=== PATIENT | female | born 1950 | race Caucasian/White ===

== ENCOUNTER 2016-02-21 09:40 | Emergency (ER) | payer MEDICARE, MEDICAID ==
--- NOTE | 2016-02-21 09:56 | Emergency Department Record ---
History of Present Illness - General Chief Complaint: Chest Pain Stated Complaint: CHEST PAIN Time Seen by Provider: 02/21/16 09:48 Source: Patient, RN notes reviewed Mode of Arrival: EMS - History of Present Illness Initial Comments: patient presented to ED with chest pain which started in the shower this am and is intermittent. Patient is a resident of [facility] and she has psychological diagnoses. Patient has called numerous times for chest pain. PMH schizophrenia. Her chest pain is reproducible by palpation over both sides of anterior chest MD Complaint: Chest pain Onset/Timin -: Hour(s) Onset: Other Pain Location: Substernal Pain Radiation: None Consistency: Now resolved Improves With: Nothing Worsens With: Nothing Treatments Prior to Arrival: None - Related Data On Oral Contraceptives: No Home Medications Medication Instructions Recorded Confirmed Last Taken Clonazepam 0.5 mg PO BID 05/12/14 02/21/16 1 Day Ago Divalproex Sodium [Divalproex 250 mg PO QHS 05/12/14 02/21/16 1 Day Ago Sodium ER] Lisinopril [Zestril] 10 mg PO DAILY 05/12/14 02/21/16 1 Day Ago Risperidone [Risperdal M-Tab] 3 mg PO BID 05/12/14 02/21/16 1 Day Ago Haloperidol 10 mg PO BID 08/04/14 02/21/16 1 Day Ago Tiotropium [place] [Spiriva] 2 puff IH DAILY 08/06/14 02/21/16 1 Day Ago Metoprolol Tartrate [Lopressor] 25 mg PO Q12H 09/29/14 02/21/16 1 Day Ago Albuterol Sulfate [Proair Hfa] 1 - 2 puff IH .EVERY 4-6 HOURS PRN 07/21/1502/20 1 Day Ago Furosemide [Lasix] 20 mg PO DAILY PRN 07/21/15 02/21/16 1 Day Ago Loperamide HCl [Anti-Diarrhea] 2 mg PO TID PRN 07/21/15 02/21/16 1 Day Ago Ondansetron HCl [Zofran] 4 mg PO TID PRN 07/21/15 02/21/16 1 Day Ago Potassium Chloride [Klor-Con] 20 meq PO DAILY PRN 07/21/15 02/21/16 1 Day Ago Atorvastatin Calcium 40 mg PO DAILY 01/29/16 02/21/16 1 Day Ago Calcium Carbonate [Calcium Antacid] 200 mg PO ASDIR 01/29/16 02/21/16 Unknown Divalproex Sodium 500 mg PO BID 01/29/16 02/21/16 1 Day Ago Glyburide 7.5 mg PO DAILY 01/29/16 02/21/16 1 Day Ago Ibuprofen [Motrin 600Mg] 600 mg PO Q8H PRN 01/29/16 02/21/16 Unknown Quetiapine Fumarate [Seroquel] 100 mg PO QHS 01/29/16 02/21/16 1 Day Ago Quetiapine Fumarate [Seroquel] 400 mg PO QHS 01/29/16 02/21/16 1 Day Ago Sodium Chloride [Saline Nasal Mist] 126 ml NS ASDIR PRN 01/29/16 02/21/16 Unknown Vortioxetine Hydrobromide 10 mg PO DAILY 01/29/16 02/21/16 1 Day Ago [Brintellix] Previous Rx's Medication Instructions Recorded Hydrochlorothiazide [Hctz] 25 mg PO DAILY #30 capsule 08/22/14 Allergies Allergy/AdvReac Type Severity Reaction Status Date / Time acetaminophen [From Tylenol] Allergy Intermediate NAUSEA Verified 01/29/16 12:02 aspirin Allergy Intermediate NAUSEA Verified 01/29/16 12:02 codeine Allergy Intermediate NAUSEA Verified 01/29/16 12:02 diphenhydramine HCl Allergy Intermediate DIZZINESS Verified 01/29/16 12:02 [From Benadryl] ibuprofen Allergy Intermediate NAUSEA Verified 01/29/16 12:02 trolamine salicylate Allergy Intermediate RASH Verified 01/29/16 12:02 [From Aspercreme] Travel Screening - Travel/Exposure Within Last 30 Days Have you traveled within the last 30 days?: No Past Medical History - SOCIAL HISTORY Smoking Status: Current every day smoker Alcohol Use: None Drug Use: None - RESPIRATORY Hx Respiratory Disorders: Yes Hx Asthma: Yes - CARDIOVASCULAR Hx Cardio Disorders: Yes Hx Hypertension: Yes - NEURO Hx Neuro Disorders: Yes Hx Dizziness: Yes Hx Headaches: Yes Comment:: Schizo affect DX - GI Hx GI Disorders: Yes Hx Abdominal Pain: Yes Hx Nausea/Vomiting: Yes Comment:: chronic diarrhea - Hx Genitourinary Disorders: No - ENDOCRINE Hx Endocrine Disorders: No - MUSCULOSKELETAL Hx Musculoskeletal Disorders: No - PSYCH Hx Psych Problems: Yes Hx Anxiety: Yes Hx Behavior Problems: Yes Comment:: Schizophrenia - HEMATOLOGY/ONCOLOGY Hx Hematology/Oncology Disorders: No Family Medical History Any Significant Family History?: No Family Hx Comment (NOT TO BE USED IN PLACE OF ITEMS BELOW): Unable to obtain from patient as patient is poor historian and had Dx of Schizophrenia Medical Decision Making - Data Complexity MDM Data: Labs Ordered and/or Reviewed (negative labs), X-Ray Ordered and/or Reviewed (atelectasis and no acute fiondings lorodotic views), EKG Ordered and/ or Reviewed (No acute changes) - Lab Data Result diagrams: 02/21/16 10:00 02/21/16 10:00 Disposition Clinical Impression: Chest wall pain Disposition: Home, Self-Care Instructions: Costochondritis (ED) Additional Instructions: tylenol 325 mg every 6 hours PRN pain Forms: Patient Portal Access Time of Disposition: 15:09
[2016-02-21] MEDS: ASPIRIN 81 MG CHEWABLE TABLET PO ONE (10:13)
[2016-02-21 10:30] LABS: HEMATOCRIT 41.3 % (35.0-47.0); HEMOGLOBIN 13.1 gm/dl (11.6-16.0); MEAN CORPUSCULAR HEMOGLOBIN 28.2 pg (27-33); MEAN CORPUSCULAR HGB CONC 31.7 g/dl (32-36); MEAN PLATELET VOLUME 9.5 fl (7.4-10.4); PLATELET COUNT 258 K/uL (130-400); RED BLOOD COUNT 4.64 M/uL (3.80-5.40); RED CELL DISTRIBUTION WIDTH 18.7 % (11.5-14.5); WHITE BLOOD COUNT W/O DIFF 5.6 K/uL (4.2-12.2)
[2016-02-21 10:51] LABS: BLOOD UREA NITROGEN 24 mg/dL (7-17); CREATININE 0.7 mg/dL (0.52-1.04); EST GLOMERULAR FILTRATION RATE > 60 ml/min; GLUCOSE,RANDOM 119 mg/dL (70-110)
[2016-02-21 10:55] LABS: CKMB 0.7 ug/L (0-6); TROPONIN I < 0.012 ng/mL (0.00-0.034)
[2016-02-21 15:00] LABS: CKMB 0.7 ug/L (0-6)
[2016-02-21 15:01] LABS: TROPONIN I < 0.012 ng/mL (0.00-0.034)
--- NOTE | 2016-02-21 15:15 | Emergency Department Record ---
History of Present Illness - General Chief Complaint: Chest Pain Stated Complaint: CHEST PAIN Time Seen by Provider: 02/21/16 09:48 Source: Patient, RN notes reviewed Mode of Arrival: EMS - History of Present Illness Onset/Timin -: Hour(s) Onset: Other Pain Location: Substernal Pain Radiation: None Consistency: Now resolved Improves With: Nothing Worsens With: Nothing Treatments Prior to Arrival: None - Related Data On Oral Contraceptives: No Home Medications Medication Instructions Recorded Confirmed Last Taken Clonazepam 0.5 mg PO BID 05/12/14 02/21/16 1 Day Ago Divalproex Sodium [Divalproex 250 mg PO QHS 05/12/14 02/21/16 1 Day Ago Sodium ER] Lisinopril [Zestril] 10 mg PO DAILY 05/12/14 02/21/16 1 Day Ago Risperidone [Risperdal M-Tab] 3 mg PO BID 05/12/14 02/21/16 1 Day Ago Haloperidol 10 mg PO BID 08/04/14 02/21/16 1 Day Ago Tiotropium [place] [Spiriva] 2 puff IH DAILY 08/06/14 02/21/16 1 Day Ago Metoprolol Tartrate [Lopressor] 25 mg PO Q12H 09/29/14 02/21/16 1 Day Ago Albuterol Sulfate [Proair Hfa] 1 - 2 puff IH .EVERY 4-6 HOURS PRN 07/21/1502/20 1 Day Ago Furosemide [Lasix] 20 mg PO DAILY PRN 07/21/15 02/21/16 1 Day Ago Loperamide HCl [Anti-Diarrhea] 2 mg PO TID PRN 07/21/15 02/21/16 1 Day Ago Ondansetron HCl [Zofran] 4 mg PO TID PRN 07/21/15 02/21/16 1 Day Ago Potassium Chloride [Klor-Con] 20 meq PO DAILY PRN 07/21/15 02/21/16 1 Day Ago Atorvastatin Calcium 40 mg PO DAILY 01/29/16 02/21/16 1 Day Ago Calcium Carbonate [Calcium Antacid] 200 mg PO ASDIR 01/29/16 02/21/16 Unknown Divalproex Sodium 500 mg PO BID 01/29/16 02/21/16 1 Day Ago Glyburide 7.5 mg PO DAILY 01/29/16 02/21/16 1 Day Ago Ibuprofen [Motrin 600Mg] 600 mg PO Q8H PRN 01/29/16 02/21/16 Unknown Quetiapine Fumarate [Seroquel] 100 mg PO QHS 01/29/16 02/21/16 1 Day Ago Quetiapine Fumarate [Seroquel] 400 mg PO QHS 01/29/16 02/21/16 1 Day Ago Sodium Chloride [Saline Nasal Mist] 126 ml NS ASDIR PRN 01/29/16 02/21/16 Unknown Vortioxetine Hydrobromide 10 mg PO DAILY 01/29/16 02/21/16 1 Day Ago [Brintellix] Previous Rx's Medication Instructions Recorded Hydrochlorothiazide [Hctz] 25 mg PO DAILY #30 capsule 08/22/14 Aspirin [Adult Low Dose Aspirin EC] 81 mg PO Q6HR #30 tablet. 02/21/16 Allergies Allergy/AdvReac Type Severity Reaction Status Date / Time acetaminophen [From Tylenol] Allergy Intermediate NAUSEA Verified 01/29/16 12:02 aspirin Allergy Intermediate NAUSEA Verified 01/29/16 12:02 codeine Allergy Intermediate NAUSEA Verified 01/29/16 12:02 diphenhydramine HCl Allergy Intermediate DIZZINESS Verified 01/29/16 12:02 [From Benadryl] ibuprofen Allergy Intermediate NAUSEA Verified 01/29/16 12:02 trolamine salicylate Allergy Intermediate RASH Verified 01/29/16 12:02 [From Aspercreme] Travel Screening - Travel/Exposure Within Last 30 Days Have you traveled within the last 30 days?: No Past Medical History - SOCIAL HISTORY Smoking Status: Current every day smoker Alcohol Use: None Drug Use: None - RESPIRATORY Hx Respiratory Disorders: Yes Hx Asthma: Yes - CARDIOVASCULAR Hx Cardio Disorders: Yes Hx Hypertension: Yes - NEURO Hx Neuro Disorders: Yes Hx Dizziness: Yes Hx Headaches: Yes Comment:: Schizo affect DX - GI Hx GI Disorders: Yes Hx Abdominal Pain: Yes Hx Nausea/Vomiting: Yes Comment:: chronic diarrhea - Hx Genitourinary Disorders: No - ENDOCRINE Hx Endocrine Disorders: No - MUSCULOSKELETAL Hx Musculoskeletal Disorders: No - PSYCH Hx Psych Problems: Yes Hx Anxiety: Yes Hx Behavior Problems: Yes Comment:: Schizophrenia - HEMATOLOGY/ONCOLOGY Hx Hematology/Oncology Disorders: No Family Medical History Any Significant Family History?: No Family Hx Comment (NOT TO BE USED IN PLACE OF ITEMS BELOW): Unable to obtain from patient as patient is poor historian and had Dx of Schizophrenia Course Vital Signs 02/21/16 02/21/16 02/21/16 10:06 10:55 13:52 Temperature 97.8 F Pulse Rate [ 86 91 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 ] Respiratory 18 18 16 Rate Blood Pressure 112/72 109/63 112/83 [Left Arm] Pulse Ox 99 Medical Decision Making - Lab Data Result diagrams: 02/21/16 10:00 02/21/16 10:00 Lab Results 02/21/16 02/21/16 02/21/16 Range/Units 10:00 10:00 10:17 WBC 5.6 (4.2-12.2) K/uL RBC 4.64 (3.80-5.40) M/uL Hgb 13.1 (11.6-16.0) gm/dl Hct 41.3 (35.0-47.0) % MCV 89.0 (81-97) fl MCH 28.2 (27-33) pg MCHC 31.7 L (32-36) g/dl RDW 18.7 H (11.5-14.5) % Plt Count 258 (130-400) K/uL MPV 9.5 (7.4-10.4) fl Neutrophils % 50.0 (47-80) % Lymphocytes % 42.0 (16-45) % Monocytes % 8.0 (0-9) % Eosinophils % Not Reportable Basophils % Not Reportable PTT 25.70 (24.5-39.1) SECONDS Sodium 139 (136-145) mmol/L Potassium 5.0 (3.5-5.1) mmol/L Chloride 100 (98-107) mmol/L Carbon Dioxide 29.0 (22-30) mmol/L Anion Gap 10.0 (7-16) BUN 24 H (7-17) mg/dL Creatinine 0.7 (0.52-1.04) mg/dL Estimated GFR > 60 ml/min Random Glucose 119 H (70-110) mg/dL Calcium 8.9 (8.5-10.1) mg/dL CK-MB (CK-2) 0.7 (0-6) ug/L Troponin I < 0.012 (0.00-0.034) ng/mL 02/21/16 Range/Units 14:23 WBC (4.2-12.2) K/uL RBC (3.80-5.40) M/uL Hgb (11.6-16.0) gm/dl Hct (35.0-47.0) % MCV (81-97) fl MCH (27-33) pg MCHC (32-36) g/dl RDW (11.5-14.5) % Plt Count (130-400) K/uL MPV (7.4-10.4) fl Neutrophils % (47-80) % Lymphocytes % (16-45) % Monocytes % (0-9) % Eosinophils % Basophils % PTT (24.5-39.1) SECONDS Sodium (136-145) mmol/L Potassium (3.5-5.1) mmol/L Chloride (98-107) mmol/L Carbon Dioxide (22-30) mmol/L Anion Gap (7-16) BUN (7-17) mg/dL Creatinine (0.52-1.04) mg/dL Estimated GFR ml/min Random Glucose (70-110) mg/dL Calcium (8.5-10.1) mg/dL CK-MB (CK-2) 0.7 (0-6) ug/L Troponin I < 0.012 (0.00-0.034) ng/mL Disposition Clinical Impression: Chest wall pain Disposition: Home, Self-Care Instructions: Costochondritis (ED) Additional Instructions: aspirin 8 1 mg every 6 hours Prescriptions: Aspirin [Adult Low Dose Aspirin EC] 81 mg PO Q6HR #30 tablet.dr Forms: Patient Portal Access Time of Disposition: 15:15
--- NOTE | 2016-02-26 12:37 | RADIOLOGY REPORT ---
EXAM: CHEST, TWO VIEWS HISTORY: CHEST PAIN. TECHNIQUE: AP and lateral views of the chest were obtained. Comparison: Two view chest 12/27/15. FINDINGS: Somewhat lordotic positioning today. The heart size appears stable. Some persistent linear fibrosis or discoid atelectasis in the right infrahilar region. Some blurring artifact on the lateral view, but no definite acute infiltrate is seen. No pleural effusion or pneumothorax evident. Advanced arthritic change in both shoulders and diffusely in the thoracic spine. There are old bilateral rib fractures again noted. IMPRESSION: 1. SOMEWHAT LORDOTIC POSITIONING. 2. PERSISTENT RIGHT PERIHILAR LINEAR FIBROSIS OR DISCOID ATELECTASIS. 3. ADVANCED DEGENERATIVE CHANGE IN THE SHOULDERS AND SPINE. OLD BILATERAL RIB FRACTURES WELL. JOB NUMBER: [id number] [facility]
== END 2016-02-21 15:39 | disposition home or self-care (01) ==
LOC: ER 09:40
DX: R07.89 Other chest pain (principal); I10 Essential (primary) hypertension; F17.210 Nicotine dependence, cigarettes, uncomplicated; F20.9 Schizophrenia, unspecified
CPT/HCPCS: 71020; 80048; 82553; 84484; 85027; 85730; 93005; 93010; 99284

== ENCOUNTER 2016-04-05 15:57 | Emergency (ER) | payer MEDICARE, MEDICAID ==
--- NOTE | 2016-04-05 16:06 | Emergency Department Record ---
History of Present Illness - General Stated Complaint: FALL Time Seen by Provider: 04/05/16 16:00 Source: Patient, EMS Mode of Arrival: EMS Limitations: No limitations - History of Present Illness Initial Comments: 65 yo female presents after a fall in her shelter. She tangled her walker with another person's walker. She states she did not hit her head or neck. She states she has some chronic pains of the right shoulder and feet but no new pain. She denies any new injury. She expresses a dislike for her shelter. She does not have any new changes in her health. Complaint: Fall -: Minutes(s) Fall From: Standing When Fall Occurred: Just prior to arrival Fall Witnessed: Yes, by living facility staff Place Fall Occurred: custodial/SNF Loss of Consciousness: None Prolonged Down Time?: No Symptoms Prior to Fall: None Location: Other (She denies any pain) Associated Symptoms: Denies - [place] Coma Scale Eye Response: (4) Open spontaneously Motor Response: (6) Obeys commands Verbal Response: (5) Oriented [place] Total: 15 - Related Data Home Medications Medication Instructions Recorded Confirmed Last Taken Clonazepam 0.5 mg PO BID 05/12/14 04/05/16 04/05/16 Divalproex Sodium [Divalproex 250 mg PO QHS 05/12/14 04/05/16 04/05/16 Sodium ER] Lisinopril [Zestril] 10 mg PO DAILY 05/12/14 04/05/16 04/05/16 Risperidone [Risperdal M-Tab] 3 mg PO BID 05/12/14 04/05/16 04/05/16 Haloperidol 10 mg PO BID 08/04/14 04/05/16 04/05/16 Tiotropium [place] [Spiriva] 2 puff IH DAILY 08/06/14 04/05/16 04/05/16 Metoprolol Tartrate [Lopressor] 25 mg PO Q12H 09/29/14 04/05/16 04/05/16 Albuterol Sulfate [Proair Hfa] 1 - 2 puff IH .EVERY 4-6 HOURS PRN 07/21/1504/0504/05/16 Furosemide [Lasix] 20 mg PO DAILY PRN 07/21/15 04/05/16 04/05/16 Loperamide HCl [Anti-Diarrhea] 2 mg PO TID PRN 07/21/15 04/05/16 04/05/16 Ondansetron HCl [Zofran] 4 mg PO TID PRN 07/21/15 04/05/16 04/05/16 Potassium Chloride [Klor-Con] 20 meq PO DAILY PRN 07/21/15 04/05/16 04/05/16 Atorvastatin Calcium 40 mg PO DAILY 01/29/16 04/05/16 04/05/16 Calcium Carbonate [Calcium Antacid] 200 mg PO ASDIR 01/29/16 04/05/16 04/05/16 Divalproex Sodium 500 mg PO BID 01/29/16 04/05/16 04/05/16 Glyburide 7.5 mg PO DAILY 01/29/16 04/05/16 04/05/16 Ibuprofen [Motrin 600Mg] 600 mg PO Q8H PRN 01/29/16 04/05/16 04/05/16 Quetiapine Fumarate [Seroquel] 100 mg PO QHS 01/29/16 04/05/16 04/05/16 Quetiapine Fumarate [Seroquel] 400 mg PO QHS 01/29/16 04/05/16 04/05/16 Sodium Chloride [Saline Nasal Mist] 126 ml NS ASDIR PRN 01/29/16 04/05/16 Vortioxetine Hydrobromide 10 mg PO DAILY 01/29/16 04/05/16 04/05/16 [Brintellix] Previous Rx's Medication Instructions Recorded Hydrochlorothiazide [Hctz] 25 mg PO DAILY #30 capsule 08/22/14 Allergies Allergy/AdvReac Type Severity Reaction Status Date / Time acetaminophen [From Tylenol] Allergy Intermediate NAUSEA Verified 04/05/16 16:01 aspirin Allergy Intermediate NAUSEA Verified 04/05/16 16:01 codeine Allergy Intermediate NAUSEA Verified 04/05/16 16:01 diphenhydramine HCl Allergy Intermediate DIZZINESS Verified 04/05/16 16:01 [From Benadryl] ibuprofen Allergy Intermediate NAUSEA Verified 04/05/16 16:01 trolamine salicylate Allergy Intermediate RASH Verified 04/05/16 16:01 [From Aspercreme] Review of Systems Constitutional: Denies: Chills, Fever, Malaise, Weakness Eyes: Denies: Eye discharge ENT: Denies: Congestion, Throat pain Respiratory: Denies: Cough, Stridor, Wheezes Cardiovascular: Denies: Chest pain, Palpitations, Syncope Endocrine: Denies: Fatigue Gastrointestinal: Denies: Abdominal pain, Diarrhea, Nausea, Vomiting Musculoskeletal: Reports: Arthralgia, Joint swelling (chronic). Denies: Back pain, Myalgia, Neck pain Skin: Denies: Bruising, Change in color, Rash Neurological: Denies: Headache Psychiatric: Reports: Anxiety Hematological/Lymphatic: Denies: Blood Clots, Easy bleeding, Easy bruising, Swollen glands Past Medical History - SOCIAL HISTORY Smoking Status: Current every day smoker Drug Use: None - RESPIRATORY Hx Respiratory Disorders: Yes Hx Asthma: Yes - CARDIOVASCULAR Hx Cardio Disorders: Yes Hx Hypertension: Yes - NEURO Hx Neuro Disorders: Yes Hx Dizziness: Yes Hx Headaches: Yes Comment:: Schizo affect DX - GI Hx GI Disorders: Yes Hx Abdominal Pain: Yes Hx Nausea/Vomiting: Yes Comment:: chronic diarrhea - Hx Genitourinary Disorders: No - ENDOCRINE Hx Endocrine Disorders: No - MUSCULOSKELETAL Hx Musculoskeletal Disorders: No - PSYCH Hx Psych Problems: Yes Hx Anxiety: Yes Hx Behavior Problems: Yes Comment:: Schizophrenia - HEMATOLOGY/ONCOLOGY Hx Hematology/Oncology Disorders: No Family Medical History Family Hx Comment (NOT TO BE USED IN PLACE OF ITEMS BELOW): Unable to obtain from patient as patient is poor historian and had Dx of Schizophrenia Physical Exam - General General Appearance: Alert, Oriented x3, Cooperative, No acute distress Limitations: No limitations - Head Head exam: Atraumatic, Normocephalic, Normal inspection - Eye Eye exam: Normal appearance, PERRL, EOMI. negative: Conjunctival injection, Periorbital swelling, Scleral icterus - ENT ENT exam: Normal exam, Mucous membranes moist Ear exam: Normal external inspection Nasal Exam: Normal inspection Mouth exam: Normal external inspection Teeth exam: Normal inspection Throat exam: Normal inspection - Neck Neck exam: Normal inspection, Full ROM. negative: Lymphadenopathy, Tenderness - Respiratory Respiratory exam: Normal lung sounds bilaterally. negative: Accessory muscle use, Chest wall tenderness, Decreased breath sounds, Respiratory distress - Cardiovascular Cardiovascular Exam: Regular rate, Normal rhythm, Normal heart sounds Peripheral Pulses: 2+: Radial (R), Radial (L) - GI/Abdominal GI/Abdominal exam: Soft. negative: Tenderness - Rectal Rectal exam: Deferred - exam: Deferred - Extremities Extremities exam: Normal inspection, Normal capillary refill, Tenderness (mild tenderness of the right shoulder, she states that is a chronic finding and unchnages) - Back Back exam: Reports: Full ROM. Denies: CVA tenderness (R), CVA tenderness (L), Muscle spasm, Paraspinal tenderness, Tenderness, Vertebral tenderness - Neurological Neurological exam: Alert, Oriented X3. negative: Motor sensory deficit - Psychiatric Psychiatric exam: negative: Agitated, Anxious, Depressed - Skin Skin exam: Dry, Intact, Normal color, Warm. negative: Cyanosis, Diaphoretic, Erythema, Mottled Course - Reevaluation(s) Reevaluation #1: The patient was seen and examined She denies any pain that is new There are no obvious physical findings of injury She will be given an ambulation trial 04/05/16 16:05 Reevaluation #2: ambulated well at her baseline DC home with instructions for a recheck 04/05/16 16:27 Disposition Disposition: Discharge Clinical Impression: Fall Qualifiers: Encounter type: initial encounter Qualified Code(s): W19.XXXA - Unspecified fall, initial encounter Disposition: Home, Self-Care Condition: (1) Good Instructions: Fall Prevention for Older Adults (ED) Additional Instructions: Return or see your doctor if any pain continues or concerns Time of Disposition: 16:28
== END 2016-04-05 16:38 | disposition home or self-care (01) ==
LOC: ER 15:57
DX: Z04.3 Encounter for examination and observation following other accident (principal); M25.511 Pain in right shoulder; G89.29 Other chronic pain; F20.9 Schizophrenia, unspecified; W03.XXXA Other fall on same level due to collision with another person, initial encounter; Y92.129 Unspecified place in nursing home as the place of occurrence of the external cause
CPT/HCPCS: 99282

== ENCOUNTER 2016-04-19 09:05 | Emergency (ER) | payer MEDICARE, MEDICAID ==
--- NOTE | 2016-04-19 09:26 | Emergency Department Record ---
History of Present Illness - General Chief Complaint: Fall Injury Stated Complaint: FALL/SHOULDER PAIN Time Seen by Provider: 04/19/16 09:19 Source: Patient, EMS Mode of Arrival: EMS Limitations: No limitations - History of Present Illness Initial Comments: 65 yo female presents after slipping down out of her wheelchair. She complains of right shoulder pain. No head injury. No neck pain. No other new complaints. She denies any recent illness. MD Complaint: Fall Onset/Timin -: Hour(s) Fall From: Chair When Fall Occurred: Just prior to arrival Fall Witnessed: No Place Fall Occurred: Other Loss of Consciousness: None Prolonged Down Time?: No Symptoms Prior to Fall: None Severity: Moderate Context: History of frequent falls Associated Symptoms: Denies - [place] Coma Scale Eye Response: (4) Open spontaneously Motor Response: (6) Obeys commands Verbal Response: (5) Oriented Luis Enrique Total: 15 - Related Data Home Medications Medication Instructions Recorded Confirmed Last Taken Clonazepam 0.5 mg PO BID 05/12/14 04/19/16 04/19/16 Lisinopril [Zestril] 10 mg PO DAILY 05/12/14 04/19/16 04/19/16 Risperidone [Risperdal M-Tab] 3 mg PO BID 05/12/14 04/19/16 04/19/16 Haloperidol 10 mg PO BID 08/04/14 04/19/16 04/19/16 Tiotropium [place] [Spiriva] 2 puff IH DAILY 08/06/14 04/19/16 04/19/16 Metoprolol Tartrate [Lopressor] 25 mg PO Q12H 09/29/14 04/19/16 04/19/16 Atorvastatin Calcium 40 mg PO DAILY 01/29/16 04/19/16 04/19/16 Divalproex Sodium 500 mg PO BID 01/29/16 04/19/16 04/19/16 Glyburide 7.5 mg PO DAILY 01/29/16 04/19/16 04/19/16 Quetiapine Fumarate [Seroquel] 100 mg PO QHS 01/29/16 04/19/16 04/19/16 Quetiapine Fumarate [Seroquel] 400 mg PO QHS 01/29/16 04/19/16 04/19/16 Vortioxetine Hydrobromide 10 mg PO DAILY 01/29/16 04/19/16 04/19/16 [Brintellix] Previous Rx's Medication Instructions Recorded Hydrochlorothiazide [Hctz] 25 mg PO DAILY #30 capsule 08/22/14 Allergies Allergy/AdvReac Type Severity Reaction Status Date / Time acetaminophen [From Tylenol] Allergy Intermediate NAUSEA Verified 04/19/16 09:10 aspirin Allergy Intermediate NAUSEA Verified 04/19/16 09:10 codeine Allergy Intermediate NAUSEA Verified 04/19/16 09:10 diphenhydramine HCl Allergy Intermediate DIZZINESS Verified 04/19/16 09:10 [From Benadryl] ibuprofen Allergy Intermediate NAUSEA Verified 04/19/16 09:10 trolamine salicylate Allergy Intermediate RASH Verified 04/19/16 09:10 [From Aspercreme] Travel Screening - Travel/Exposure Within Last 30 Days Have you traveled within the last 30 days?: No - Travel/Exposure Within Last Year Have you traveled outside the [place] in the last year?: No - Additonal Travel Details Have you been exposed to anyone with a communicable illness?: No - Travel Symptoms Symptom Screening: None Review of Systems Constitutional: Denies: Chills, Fever, Weakness Eyes: Denies: Eye discharge ENT: Denies: Congestion Respiratory: Denies: Cough, Dyspnea, Hemoptysis, Stridor, Wheezes Cardiovascular: Denies: Chest pain, Palpitations, Syncope Endocrine: Denies: Fatigue Gastrointestinal: Denies: Abdominal pain, Diarrhea, Nausea, Vomiting Genitourinary: Denies: Dysuria, Frequency, Hematuria Musculoskeletal: Reports: Arthralgia, Myalgia. Denies: Back pain, Joint swelling, Neck pain Skin: Denies: Bruising, Change in color, Rash Neurological: Denies: Confusion, Headache Psychiatric: Denies: Anxiety Hematological/Lymphatic: Denies: Blood Clots, Easy bleeding, Easy bruising Past Medical History - SOCIAL HISTORY Smoking Status: Current every day smoker Alcohol Use: None Drug Use: None - RESPIRATORY Hx Respiratory Disorders: Yes Hx Asthma: Yes - CARDIOVASCULAR Hx Cardio Disorders: Yes Hx Hypertension: Yes - NEURO Hx Neuro Disorders: Yes Hx Dizziness: Yes Hx Headaches: Yes Comment:: Schizo affect DX - GI Hx GI Disorders: Yes Hx Abdominal Pain: Yes Hx Nausea/Vomiting: Yes Comment:: chronic diarrhea - Hx Genitourinary Disorders: No - ENDOCRINE Hx Endocrine Disorders: No - MUSCULOSKELETAL Hx Musculoskeletal Disorders: No - PSYCH Hx Psych Problems: Yes Hx Anxiety: Yes Hx Behavior Problems: Yes Comment:: Schizophrenia - HEMATOLOGY/ONCOLOGY Hx Hematology/Oncology Disorders: No Family Medical History Any Significant Family History?: No Family Hx Comment (NOT TO BE USED IN PLACE OF ITEMS BELOW): Unable to obtain from patient as patient is poor historian and had Dx of Schizophrenia Physical Exam - General General Appearance: Alert, Oriented x3, Cooperative, No acute distress Limitations: No limitations - Head Head exam: Atraumatic, Normocephalic, Normal inspection Head exam detail: negative: Abrasion, Contusion, General tenderness, Hematoma, Laceration - Eye Eye exam: Normal appearance, PERRL - ENT ENT exam: Normal exam, Mucous membranes moist, Normal external ear exam, Normal orophraynx Ear exam: Normal external inspection. negative: External canal tenderness Nasal Exam: Normal inspection. negative: Discharge, Sinus tenderness Mouth exam: Normal external inspection, Tongue normal Teeth exam: Normal inspection. negative: Dental caries Throat exam: Normal inspection. negative: Tonsillar erythema, Tonsillar exudate - Neck Neck exam: Normal inspection, Full ROM. negative: Tenderness - Respiratory Respiratory exam: Normal lung sounds bilaterally. negative: Respiratory distress - Cardiovascular Cardiovascular Exam: Regular rate, Normal rhythm, Normal heart sounds - GI/Abdominal GI/Abdominal exam: Soft. negative: Guarding, Rebound, Rigid, Tenderness - Rectal Rectal exam: Deferred - exam: Deferred - Extremities Extremities exam: Normal inspection, Normal capillary refill, Tenderness Image of Full Body: 1 - tender to palpation and with ROM but still with full unlimited ROM, no deformity - Back Back exam: Reports: Normal inspection, Full ROM. Denies: Muscle spasm, Rash noted, Tenderness - Neurological Neurological exam: Alert, Normal gait, Oriented X3. negative: Altered - Psychiatric Psychiatric exam: Normal affect, Normal mood - Skin Skin exam: Dry, Intact, Normal color, Warm. negative: Abrasion, Cyanosis, Diaphoretic, Erythema Course Vital Signs 04/19/16 09:10 Temperature 98 F Pulse Rate 101 H Respiratory 20 Rate Blood Pressure 122/76 Pulse Ox 92 L - Reevaluation(s) Reevaluation #1: X is negative for acute injury, she has advanced degenerative changes 04/19/16 10:16 Disposition Disposition: Discharge Clinical Impression: Shoulder strain Qualifiers: Encounter type: initial encounter Laterality: right Qualified Code(s): S46.911A - Strain of unspecified muscle, fascia and tendon at shoulder and upper arm level, right arm, initial encounter Disposition: Home, Self-Care Condition: (1) Good Instructions: Fall Prevention for Older Adults (ED) Additional Instructions: Rest and avoid lifting Forms: Patient Portal Access Time of Disposition: 10:17
== END 2016-04-19 11:20 | disposition home or self-care (01) ==
LOC: ER 09:05
DX: S46.911A Strain of unspecified muscle, fascia and tendon at shoulder and upper arm level, right arm, initial encounter (principal); W05.0XXA Fall from non-moving wheelchair, initial encounter; Z91.81 History of falling; I10 Essential (primary) hypertension; F17.210 Nicotine dependence, cigarettes, uncomplicated; F20.9 Schizophrenia, unspecified
CPT/HCPCS: 99283

== ENCOUNTER 2016-07-09 09:42 | Emergency (ER) | payer MEDICARE, MEDICAID ==
--- NOTE | 2016-07-09 09:59 | Emergency Department Record ---
History of Present Illness - General Chief Complaint: Altered Mental Status Stated Complaint: ALTERED MENTAL Time Seen by Provider: 07/09/16 09:54 Source: Patient, Old records reviewed Mode of Arrival: EMS Limitations: No limitations - History of Present Illness Initial Comments: 65 yo female presents to ED for evaluation of "not wanting to take her Depakote " and "laying down on the floor" at her [facility] home and not speaking with caregivers. Caregiver at the bedside reports that the patient is now back to her baseline, patient is tearful stating "The are trying to kill me". Caregiver denies any for of trauma or injury. MD Complaint: Altered mental status Onset/Timin -: Hour(s) Severity: Mild Consistency: Intermittent Associated Symptoms: Denies other symptoms - [place] Coma Scale Eye Response: (4) Open spontaneously Motor Response: (6) Obeys commands Verbal Response: (5) Oriented Luis Enrique Total: 15 - Related Data Home Medications Medication Instructions Recorded Confirmed Last Taken Clonazepam 0.5 mg PO BID 05/12/14 07/09/16 07/09/16 Lisinopril [Zestril] 10 mg PO DAILY 05/12/14 07/09/16 07/09/16 Risperidone [Risperdal M-Tab] 3 mg PO BID 05/12/14 07/09/16 07/09/16 Haloperidol 10 mg PO BID 08/04/14 07/09/16 07/09/16 Tiotropium [place] [Spiriva] 2 puff IH DAILY 08/06/14 07/09/16 07/09/16 Metoprolol Tartrate [Lopressor] 25 mg PO Q12H 09/29/14 07/09/16 07/09/16 Atorvastatin Calcium 40 mg PO DAILY 01/29/16 07/09/16 07/09/16 Divalproex Sodium 500 mg PO BID 01/29/16 07/09/16 07/09/16 Glyburide 5 mg PO DAILY 01/29/16 07/09/16 07/09/16 Quetiapine Fumarate [Seroquel] 100 mg PO QHS 01/29/16 07/09/16 07/08/16 Quetiapine Fumarate [Seroquel] 400 mg PO QHS 01/29/16 07/09/16 07/08/16 Vortioxetine Hydrobromide 10 mg PO DAILY 01/29/16 07/09/16 07/09/16 [Brintellix] Previous Rx's Medication Instructions Recorded Hydrochlorothiazide [Hctz] 25 mg PO DAILY #30 capsule 08/22/14 Allergies Allergy/AdvReac Type Severity Reaction Status Date / Time acetaminophen [From Tylenol] Allergy Intermediate NAUSEA Verified 04/29/16 19:04 aspirin Allergy Intermediate NAUSEA Verified 04/29/16 19:04 codeine Allergy Intermediate NAUSEA Verified 04/29/16 19:04 diphenhydramine HCl Allergy Intermediate DIZZINESS Verified 04/29/16 19:04 [From Benadryl] ibuprofen Allergy Intermediate NAUSEA Verified 04/29/16 19:04 trolamine salicylate Allergy Intermediate RASH Verified 04/29/16 19:04 [From Aspercreme] Travel Screening - Travel/Exposure Within Last 30 Days Have you traveled within the last 30 days?: No - Travel/Exposure Within Last Year Have you traveled outside the [place] in the last year?: No - Additonal Travel Details Have you been exposed to anyone with a communicable illness?: No - Travel Symptoms Symptom Screening: None Review of Systems ROS unobtainable: Other Past Medical History - SOCIAL HISTORY Smoking Status: Former smoker Alcohol Use: None Drug Use: None - RESPIRATORY Hx Respiratory Disorders: Yes Hx Asthma: Yes - CARDIOVASCULAR Hx Cardio Disorders: Yes Hx Hypertension: Yes - NEURO Hx Neuro Disorders: Yes Hx Dizziness: Yes Hx Headaches: Yes Comment:: Schizo affect DX - GI Hx GI Disorders: Yes Hx Abdominal Pain: Yes Hx Nausea/Vomiting: Yes Comment:: chronic diarrhea - Hx Genitourinary Disorders: No - ENDOCRINE Hx Endocrine Disorders: No - MUSCULOSKELETAL Hx Musculoskeletal Disorders: No - PSYCH Hx Psych Problems: Yes Hx Anxiety: Yes Hx Behavior Problems: Yes Comment:: Schizophrenia - HEMATOLOGY/ONCOLOGY Hx Hematology/Oncology Disorders: No Family Medical History Any Significant Family History?: No Family Hx Comment (NOT TO BE USED IN PLACE OF ITEMS BELOW): Unable to obtain from patient as patient is poor historian and had Dx of Schizophrenia Physical Exam - General General Appearance: Alert, Oriented x3, Cooperative, Other (Patient is crying on examination stating "they are trying to kill me", "I want to take a nap") - Head Head exam: Atraumatic, Normocephalic, Normal inspection Head exam detail: negative: Abrasion, Contusion, Kilpatrick's sign, General tenderness, Hematoma, Laceration - Eye Eye exam: Normal appearance. negative: Conjunctival injection, Periorbital swelling, Periorbital tenderness, Scleral icterus - ENT Ear exam: negative: Auricular hematoma, Auricular trauma Nasal Exam: negative: Active bleeding, Discharge, Dried blood, Foreign body Mouth exam: negative: Drooling, Laceration, Muffled voice, Tongue elevation - Neck Neck exam: Normal inspection. negative: Meningismus, Tenderness - Respiratory Respiratory exam: Normal lung sounds bilaterally. negative: Rales, Respiratory distress, Rhonchi, Stridor - Cardiovascular Cardiovascular Exam: Regular rate, Normal rhythm, Normal heart sounds - GI/Abdominal GI/Abdominal exam: Soft. negative: Rebound, Rigid, Tenderness - Rectal Rectal exam: Deferred - exam: Deferred - Extremities Extremities exam: Other (Moves all extremities spontaneously). negative: Calf tenderness, Pedal edema, Tenderness - Back Back exam: Denies: CVA tenderness (R), CVA tenderness (L) - Neurological Neurological exam: Alert. negative: Motor sensory deficit - Psychiatric Psychiatric exam: Anxious - Skin Skin exam: Normal color. negative: Abrasion Type of lesion: negative: abrasion Course Vital Signs 07/09/16 09:45 Pulse Rate 89 Respiratory 16 Rate Blood Pressure 103/86 Pulse Ox 98 - Reevaluation(s) Reevaluation #1: 07/09/16 10:01 Patient is well appearing and at her baseline mental status, appears stable for discharge with her caregiver without further laboratory or imaging studies at this time. Patient was encouraged to take her Depakote as well. Disposition Disposition: Discharge Clinical Impression: Anxiety Disposition: Home, Self-Care Condition: (2) Stable Instructions: Anxiety (ED) Additional Instructions: Return to ED if your symptoms worsen or if you have any concerns. Follow-up with Dr. Gonzalez in 3-5 days as directed. Forms: Patient Portal Access Time of Disposition: 10:03
== END 2016-07-09 10:31 | disposition home or self-care (01) ==
LOC: ER 09:42
DX: F41.9 Anxiety disorder, unspecified (principal); F20.9 Schizophrenia, unspecified; R41.82 Altered mental status, unspecified
CPT/HCPCS: 99282

== ENCOUNTER 2016-07-25 19:01 | Emergency (ER) | payer MEDICARE, MEDICAID ==
--- NOTE | 2016-07-25 19:09 | Emergency Department Record ---
History of Present Illness - General Stated Complaint: ALL OVER PAIN Time Seen by Provider: 07/25/16 19:02 Source: Patient, EMS Mode of Arrival: Stretcher Limitations: No limitations - History of Present Illness Initial comments: 65 yo female presents with pain all over including her abdomen. She states she is which has been a long standing concern of hers. She is not vomiting , no diarrhea. She had bowel movements in the last 24 hours that were normal. She has been eating and drinking. She denies falls. She has chronic pain and states she hurts all over her body. No fevers. -: Hour(s) Radiation: Abdomen Quality: Aching Consistency: Constant Improves with: None Worsens with: None Associated Symptoms: Denies other symptoms - [place] Coma Scale Eye Response: (4) Open spontaneously Motor Response: (6) Obeys commands Verbal Response: (5) Oriented Luis Enrique Total: 15 - Related Data Home Medications Medication Instructions Recorded Confirmed Last Taken Clonazepam 0.5 mg PO BID 05/12/14 07/25/16 07/25/16 Lisinopril [Zestril] 10 mg PO DAILY 05/12/14 07/25/16 07/25/16 Risperidone [Risperdal M-Tab] 3 mg PO BID 05/12/14 07/25/16 07/25/16 Haloperidol 10 mg PO BID 08/04/14 07/25/16 07/25/16 Tiotropium [place] [Spiriva] 2 puff IH DAILY 08/06/14 07/25/16 07/25/16 Metoprolol Tartrate [Lopressor] 25 mg PO Q12H 09/29/14 07/25/16 07/25/16 Divalproex Sodium 500 mg PO BID 01/29/16 07/25/16 07/25/16 Glyburide 5 mg PO DAILY 01/29/16 07/25/16 07/25/16 Quetiapine Fumarate [Seroquel] 100 mg PO QHS 01/29/16 07/25/16 07/25/16 Quetiapine Fumarate [Seroquel] 400 mg PO QHS 01/29/16 07/25/16 07/25/16 Aspirin [Ecotrin] 81 mg PO DAILY 07/25/16 07/25/16 07/25/16 Atorvastatin Calcium 40 mg PO DAILY 07/25/16 07/25/1607/25/17 Calcium Carbonate [Calcium Antacid] 430 mg PO ASDIR 07/25/16 07/25/16 07/25/16 Furosemide [Lasix] 20 mg PO DAILY 07/25/16 07/25/16 07/25/16 Potassium Chloride 10 meq PO DAILY 07/25/16 07/25/16 07/25/16 Vortioxetine Hydrobromide 10 mg PO ASDIR 07/25/16 07/25/16 07/25/16 [Trintellix] Previous Rx's Medication Instructions Recorded Hydrochlorothiazide [Hctz] 25 mg PO DAILY #30 capsule 08/22/14 Allergies Allergy/AdvReac Type Severity Reaction Status Date / Time acetaminophen [From Tylenol] Allergy Intermediate NAUSEA Verified 07/25/16 19:03 aspirin Allergy Intermediate NAUSEA Verified 07/25/16 19:03 codeine Allergy Intermediate NAUSEA Verified 07/25/16 19:03 diphenhydramine HCl Allergy Intermediate DIZZINESS Verified 07/25/16 19:03 [From Benadryl] ibuprofen Allergy Intermediate NAUSEA Verified 07/25/16 19:03 trolamine salicylate Allergy Intermediate RASH Verified 07/25/16 19:03 [From Aspercreme] Review of Systems Constitutional: Denies: Chills, Fever, Weakness Eyes: Denies: Eye discharge, Photophobia, Vision change ENT: Denies: Congestion, Throat pain Respiratory: Denies: Cough, Dyspnea, Hemoptysis, Stridor, Wheezes Cardiovascular: Denies: Chest pain, Palpitations, Syncope Endocrine: Denies: Fatigue Gastrointestinal: Reports: Abdominal pain. Denies: Constipation, Diarrhea, Hematemesis, Hematochezia, Melena, Nausea, Vomiting Genitourinary: Denies: Dysuria, Urgency Musculoskeletal: Reports: As per HPI (chronci pain), Arthralgia, Back pain, Myalgia. Denies: Joint swelling Skin: Denies: Bruising, Change in color, Rash Neurological: Denies: Headache Psychiatric: Denies: Anxiety Hematological/Lymphatic: Denies: Blood Clots, Easy bleeding, Easy bruising, Swollen glands Past Medical History - SOCIAL HISTORY Smoking Status: Former smoker Drug Use: None - RESPIRATORY Hx Respiratory Disorders: Yes Hx Asthma: Yes - CARDIOVASCULAR Hx Cardio Disorders: Yes Hx Hypertension: Yes - NEURO Hx Neuro Disorders: Yes Hx Dizziness: Yes Hx Headaches: Yes Comment:: Schizo affect DX - GI Hx GI Disorders: Yes Hx Abdominal Pain: Yes Hx Nausea/Vomiting: Yes Comment:: chronic diarrhea - Hx Genitourinary Disorders: No - ENDOCRINE Hx Endocrine Disorders: No - MUSCULOSKELETAL Hx Musculoskeletal Disorders: No - PSYCH Hx Psych Problems: Yes Hx Anxiety: Yes Hx Behavior Problems: Yes Comment:: Schizophrenia - HEMATOLOGY/ONCOLOGY Hx Hematology/Oncology Disorders: No Family Medical History Family Hx Comment (NOT TO BE USED IN PLACE OF ITEMS BELOW): Unable to obtain from patient as patient is poor historian and had Dx of Schizophrenia Physical Exam - General General Appearance: Alert, Oriented x3, Cooperative, No acute distress Limitations: No limitations - Head Head exam: Normal inspection - Eye Eye exam: Normal appearance. negative: Conjunctival injection, Periorbital swelling - ENT ENT exam: Normal exam Ear exam: Normal external inspection Nasal Exam: Normal inspection Mouth exam: Normal external inspection Teeth exam: Normal inspection Throat exam: Normal inspection - Neck Neck exam: Normal inspection. negative: Lymphadenopathy - Respiratory Respiratory exam: Normal lung sounds bilaterally. negative: Respiratory distress - Cardiovascular Cardiovascular Exam: Regular rate, Normal rhythm, Normal heart sounds Peripheral Pulses: 2+: Radial (R), Radial (L) - GI/Abdominal GI/Abdominal exam: Soft, Normal bowel sounds. negative: Distended, Guarding, Hernia, Hypoactive bowel sounds, Rebound, Rigid, Tenderness - Rectal Rectal exam: Deferred - exam: Deferred - Extremities Extremities exam: Normal inspection, Full ROM, Normal capillary refill. negative: Tenderness - Back Back exam: Reports: Normal inspection, Full ROM. Denies: Muscle spasm, Rash noted, Tenderness - Neurological Neurological exam: Alert, Oriented X3. negative: Altered - Psychiatric Psychiatric exam: Normal affect, Normal mood. negative: Agitated, Anxious - Skin Skin exam: Dry, Intact, Normal color, Warm Course - Reevaluation(s) Reevaluation #1: CT scan of the abdomen April 2016 was negative for acute process. She had stool noted at that time. She reports recent normal bowel movements.. 07/25/16 19:09 Reevaluation #2: The examination is very benign. The patient's main concern is her "babies". This has been a chronic concern for her. No fever. No vomiting by history. She reports normal bowel movements. She is conversational and at baseline. 07/25/16 19:25 Disposition Disposition: Discharge Clinical Impression: Abdominal pain Disposition: Home, Self-Care Condition: (1) Good Instructions: Chronic Abdominal Pain (ED) Additional Instructions: Return if you have fever, vomiting, changes in bowel movements or urination Follow up this week with your doctor Time of Disposition: 19:27
== END 2016-07-25 20:08 | disposition home or self-care (01) ==
LOC: ER 19:01
DX: R10.9 Unspecified abdominal pain (principal); F25.9 Schizoaffective disorder, unspecified
CPT/HCPCS: 99281

== ENCOUNTER 2016-09-03 13:38 | Emergency (ER) | payer MEDICARE, MEDICAID ==
[2016-09-03] MEDS ORDERED: ASPIRIN 81 MG CHEWABLE TABLET PO ONE (13:54)
[2016-09-03] MEDS ORDERED: ALBUTEROL SULFATE (0.083%) 2.5 MG/3 ML NEB INH ONE (14:02)
[2016-09-03] MEDS ORDERED: 0.9 % SODIUM CHLORIDE 1,000 ML BAG IV ONE (14:03)
--- NOTE | 2016-09-03 14:08 | Emergency Department Record ---
History of Present Illness - General Chief Complaint: Chest Pain Stated Complaint: CHEST PAIN Time Seen by Provider: 09/03/16 13:53 Source: Patient Mode of Arrival: EMS Limitations: No limitations - History of Present Illness Initial Comments: pt c/o cp that is getting better MD Complaint: Chest pain Onset/Timin -: Hour(s) Onset: During exertion Pain Location: Substernal Pain Radiation: None Quality: Other Consistency: Constant Improves With: Nothing Worsens With: Nothing Treatments Prior to Arrival: None - Related Data Home Medications Medication Instructions Recorded Confirmed Last Taken Clonazepam 0.5 mg PO BID 05/12/14 07/25/16 07/25/16 Lisinopril [Zestril] 10 mg PO DAILY 05/12/14 07/25/16 07/25/16 Risperidone [Risperdal M-Tab] 3 mg PO BID 05/12/14 07/25/16 07/25/16 Haloperidol 10 mg PO BID 08/04/14 07/25/16 07/25/16 Tiotropium [place] [Spiriva] 2 puff IH DAILY 08/06/14 07/25/16 07/25/16 Metoprolol Tartrate [Lopressor] 25 mg PO Q12H 09/29/14 07/25/16 07/25/16 Divalproex Sodium 500 mg PO BID 01/29/16 07/25/16 07/25/16 Glyburide 5 mg PO DAILY 01/29/16 07/25/16 07/25/16 Quetiapine Fumarate [Seroquel] 100 mg PO QHS 01/29/16 07/25/16 07/25/16 Quetiapine Fumarate [Seroquel] 400 mg PO QHS 01/29/16 07/25/16 07/25/16 Aspirin [Ecotrin] 81 mg PO DAILY 07/25/16 07/25/16 07/25/16 Atorvastatin Calcium 40 mg PO DAILY 07/25/16 07/25/16 07/25/16 Calcium Carbonate [Calcium Antacid] 430 mg PO ASDIR 07/25/16 07/25/16 07/25/16 Furosemide [Lasix] 20 mg PO DAILY 07/25/16 07/25/16 07/25/16 Potassium Chloride 10 meq PO DAILY 07/25/16 07/25/16 07/25/16 Vortioxetine Hydrobromide 10 mg PO ASDIR 07/25/16 07/25/16 07/25/16 [Trintellix] Previous Rx's Medication Instructions Recorded Hydrochlorothiazide [Hctz] 25 mg PO DAILY #30 capsule 08/22/14 Allergies Allergy/AdvReac Type Severity Reaction Status Date / Time acetaminophen [From Tylenol] Allergy Intermediate NAUSEA Verified 07/25/16 19:03 aspirin Allergy Intermediate NAUSEA Verified 07/25/16 19:03 codeine Allergy Intermediate NAUSEA Verified 07/25/16 19:03 diphenhydramine HCl Allergy Intermediate DIZZINESS Verified 07/25/16 19:03 [From Benadryl] ibuprofen Allergy Intermediate NAUSEA Verified 07/25/16 19:03 trolamine salicylate Allergy Intermediate RASH Verified 07/25/16 19:03 [From Aspercreme] Travel Screening - Travel/Exposure Within Last 30 Days Have you traveled within the last 30 days?: No Review of Systems Reviewed: No additional complaints except as noted below Constitutional: Reports: As per HPI. Denies: Chills, Fever, Malaise, Night sweats, Weakness, Weight change Eyes: Reports: As per HPI. Denies: Eye discharge, Eye pain, Photophobia, Vision change ENT: Reports: As per HPI. Denies: Congestion, Dental pain, Ear pain, Epistaxis , Hearing loss, Throat pain Respiratory: Reports: As per HPI. Denies: Cough, Dyspnea, Hemoptysis, Stridor, Wheezes Cardiovascular: Reports: As per HPI. Denies: Arrhythmia, Chest pain, Dyspnea on exertion, Edema, Murmurs, Orthopnea, Palpitations, Paroxysmal nocturnal dyspnea, Rheumatic Fever, Syncope Endocrine: Reports: As per HPI. Denies: Fatigue, Heat or cold intolerance, Polydipsia, Polyuria Gastrointestinal: Reports: As per HPI. Denies: Abdominal pain, Constipation, Diarrhea, Hematemesis, Hematochezia, Melena, Nausea, Vomiting Genitourinary: Reports: As per HPI. Denies: Abnormal menses, Discharge, Dyspareunia, Dysuria, Frequency, Hematuria, Incontinence, Retention, Urgency Musculoskeletal: Reports: As per HPI. Denies: Arthralgia, Back pain, Gout, Joint swelling, Myalgia, Neck pain Skin: Reports: As per HPI. Denies: Bruising, Change in color, Change in hair/ nails, Lesions, Pruritus, Rash Neurological: Reports: As per HPI. Denies: Abnormal gait, Confusion, Headache, Numbness, Paresthesias, Seizure, Tingling, Tremors, Vertigo, Weakness Psychiatric: Reports: As per HPI. Denies: Anxiety, Auditory hallucinations, Depression, Homicidal thoughts, Suicidal thoughts, Visual hallucinations Hematological/Lymphatic: Reports: As per HPI. Denies: Anemia, Blood Clots, Easy bleeding, Easy bruising, Swollen glands Past Medical History - SOCIAL HISTORY Smoking Status: Former smoker Alcohol Use: None Drug Use: None - RESPIRATORY Hx Respiratory Disorders: Yes Hx Asthma: Yes - CARDIOVASCULAR Hx Cardio Disorders: Yes Hx Hypertension: Yes - NEURO Hx Neuro Disorders: Yes Hx Dizziness: Yes Hx Headaches: Yes Comment:: Schizo affect DX - GI Hx GI Disorders: Yes Hx Abdominal Pain: Yes Hx Nausea/Vomiting: Yes Comment:: chronic diarrhea - Hx Genitourinary Disorders: No - ENDOCRINE Hx Endocrine Disorders: No - MUSCULOSKELETAL Hx Musculoskeletal Disorders: No - PSYCH Hx Psych Problems: Yes Hx Anxiety: Yes Hx Behavior Problems: Yes Comment:: Schizophrenia - HEMATOLOGY/ONCOLOGY Hx Hematology/Oncology Disorders: No Family Medical History Any Significant Family History?: No Family Hx Comment (NOT TO BE USED IN PLACE OF ITEMS BELOW): Unable to obtain from patient as patient is poor historian and had Dx of Schizophrenia Physical Exam - General General Appearance: Alert, Oriented x3, Cooperative, Mild distress - Head Head exam: Normal inspection - Eye Eye exam: Normal appearance, PERRL, EOMI Pupils: Normal accommodation - ENT ENT exam: Normal exam, Mucous membranes moist, Normal external ear exam, Normal orophraynx Ear exam: Normal external inspection. negative: External canal tenderness Nasal Exam: Normal inspection. negative: Discharge, Sinus tenderness Mouth exam: Normal external inspection, Tongue normal Teeth exam: Normal inspection. negative: Dental caries Throat exam: Normal inspection. negative: Tonsillar erythema, Tonsillar exudate - Neck Neck exam: Normal inspection, Full ROM. negative: Tenderness - Respiratory Respiratory exam: Normal lung sounds bilaterally. negative: Respiratory distress - Cardiovascular Cardiovascular Exam: Normal rhythm, Normal heart sounds, Tachycardia - GI/Abdominal GI/Abdominal exam: Soft, Normal bowel sounds. negative: Tenderness - Rectal Rectal exam: Deferred - exam: Deferred - Extremities Extremities exam: Normal inspection, Full ROM, Normal capillary refill. negative: Tenderness - Back Back exam: Reports: Normal inspection, Full ROM. Denies: Muscle spasm, Rash noted, Tenderness - Neurological Neurological exam: Alert, CN II-XII intact, Normal gait, Oriented X3 - Psychiatric Psychiatric exam: Normal affect, Normal mood - Skin Skin exam: Dry, Intact, Normal color, Warm Course Vital Signs 09/03/16 13:46 Temperature 97.3 F L Pulse Rate 104 H Respiratory 18 Rate Blood Pressure 111/69 Pulse Ox 99 - Reevaluation(s) Reevaluation #1: 09/03/16 15:47 pt s cp started several hours ago, no lab changes , no ekg changes Medical Decision Making - Lab Data Result diagrams: 09/03/16 15:12 09/03/16 15:12 Disposition Disposition: Discharge Clinical Impression: Chest wall pain Disposition: Home, Self-Care Condition: (1) Good Instructions: Chest Pain (ED) Additional Instructions: follow up with family doctor. return sooner if worse. Forms: Patient Portal Access Quality - Quality Measures Quality Measures: N/A - Blood Pressure Screening Blood Pressure Classification: Normal BP Reading Systolic Measurement: 111 Diastolic Measurement: 69 Screening for High Blood Pressure: < Normal BP, F/U Not Required > [G8783] Normal BP Follow-up Interventions: No follow-up required
[2016-09-03 15:17] LABS: HEMATOCRIT 40.4 % (35.0-47.0); MEAN CORPUSCULAR HGB CONC 32.2 g/dl (32-36); MEAN PLATELET VOLUME 9.5 fl (7.4-10.4); PLATELET COUNT 249 K/uL (130-400); RED BLOOD COUNT 4.49 M/uL (3.80-5.40); RED CELL DISTRIBUTION WIDTH 17.9 % (11.5-14.5); WHITE BLOOD COUNT W/O DIFF 8.2 K/uL (4.2-12.2)
[2016-09-03 15:27] LABS: PLATELET ESTIMATE NORMAL (NORMAL)
[2016-09-03 15:29] LABS: BLOOD UREA NITROGEN 19 mg/dL (7-17); CREATININE 0.8 mg/dL (0.52-1.04); EST GLOMERULAR FILTRATION RATE > 60 ml/min; GLUCOSE,RANDOM 132 mg/dL (70-110)
[2016-09-03 15:41] LABS: CKMB 1.3 ug/L (0-6)
[2016-09-03 15:43] LABS: TROPONIN I < 0.012 ng/mL (0.00-0.034)
[2016-09-03 15:55] LABS: CREATINE PHOSPHOKINASE 46 U/L (30-135)
--- NOTE | 2016-09-03 15:57 | Emergency Department Record ---
History of Present Illness - General Chief Complaint: Chest Pain Stated Complaint: CHEST PAIN Time Seen by Provider: 09/03/16 13:53 Source: Patient Mode of Arrival: EMS Limitations: No limitations - History of Present Illness Onset/Timin -: Hour(s) Onset: During exertion Pain Location: Substernal Pain Radiation: None Quality: Other Consistency: Constant Improves With: Nothing Worsens With: Nothing Treatments Prior to Arrival: None - Related Data Home Medications Medication Instructions Recorded Confirmed Last Taken Clonazepam 0.5 mg PO BID 05/12/14 07/25/16 07/25/16 Lisinopril [Zestril] 10 mg PO DAILY 05/12/14 07/25/16 07/25/16 Risperidone [Risperdal M-Tab] 3 mg PO BID 05/12/14 07/25/16 07/25/16 Haloperidol 10 mg PO BID 08/04/14 07/25/16 07/25/16 Tiotropium [place] [Spiriva] 2 puff IH DAILY 08/06/14 07/25/16 07/25/16 Metoprolol Tartrate [Lopressor] 25 mg PO Q12H 09/29/14 07/25/16 07/25/16 Divalproex Sodium 500 mg PO BID 01/29/16 07/25/16 07/25/16 Glyburide 5 mg PO DAILY 01/29/16 07/25/16 07/25/16 Quetiapine Fumarate [Seroquel] 100 mg PO QHS 01/29/16 07/25/16 07/25/16 Quetiapine Fumarate [Seroquel] 400 mg PO QHS 01/29/16 07/25/16 07/25/16 Aspirin [Ecotrin] 81 mg PO DAILY 07/25/16 07/25/16 07/25/16 Atorvastatin Calcium 40 mg PO DAILY 07/25/16 07/25/16 07/25/16 Calcium Carbonate [Calcium Antacid] 430 mg PO ASDIR 07/25/16 07/25/16 07/25/16 Furosemide [Lasix] 20 mg PO DAILY 07/25/16 07/25/16 07/25/16 Potassium Chloride 10 meq PO DAILY 07/25/16 07/25/16 07/25/16 Vortioxetine Hydrobromide 10 mg PO ASDIR 07/25/16 07/25/1607/25/17 [Trintellix] Previous Rx's Medication Instructions Recorded Hydrochlorothiazide [Hctz] 25 mg PO DAILY #30 capsule 08/22/14 Allergies Allergy/AdvReac Type Severity Reaction Status Date / Time acetaminophen [From Tylenol] Allergy Intermediate NAUSEA Verified 07/25/16 19:03 aspirin Allergy Intermediate NAUSEA Verified 07/25/16 19:03 codeine Allergy Intermediate NAUSEA Verified 07/25/16 19:03 diphenhydramine HCl Allergy Intermediate DIZZINESS Verified 07/25/16 19:03 [From Benadryl] ibuprofen Allergy Intermediate NAUSEA Verified 07/25/16 19:03 trolamine salicylate Allergy Intermediate RASH Verified 07/25/16 19:03 [From Aspercreme] Travel Screening - Travel/Exposure Within Last 30 Days Have you traveled within the last 30 days?: No Review of Systems Constitutional: Reports: As per HPI. Denies: Chills, Fever, Malaise, Night sweats, Weakness, Weight change Eyes: Reports: As per HPI. Denies: Eye discharge, Eye pain, Photophobia, Vision change ENT: Reports: As per HPI. Denies: Congestion, Dental pain, Ear pain, Epistaxis , Hearing loss, Throat pain Respiratory: Reports: As per HPI. Denies: Cough, Dyspnea, Hemoptysis, Stridor, Wheezes Cardiovascular: Reports: As per HPI. Denies: Arrhythmia, Chest pain, Dyspnea on exertion, Edema, Murmurs, Orthopnea, Palpitations, Paroxysmal nocturnal dyspnea, Rheumatic Fever, Syncope Endocrine: Reports: As per HPI. Denies: Fatigue, Heat or cold intolerance, Polydipsia, Polyuria Gastrointestinal: Reports: As per HPI. Denies: Abdominal pain, Constipation, Diarrhea, Hematemesis, Hematochezia, Melena, Nausea, Vomiting Genitourinary: Reports: As per HPI. Denies: Abnormal menses, Discharge, Dyspareunia, Dysuria, Frequency, Hematuria, Incontinence, Retention, Urgency Musculoskeletal: Reports: As per HPI. Denies: Arthralgia, Back pain, Gout, Joint swelling, Myalgia, Neck pain Skin: Reports: As per HPI. Denies: Bruising, Change in color, Change in hair/ nails, Lesions, Pruritus, Rash Neurological: Reports: As per HPI. Denies: Abnormal gait, Confusion, Headache, Numbness, Paresthesias, Seizure, Tingling, Tremors, Vertigo, Weakness Psychiatric: Reports: As per HPI. Denies: Anxiety, Auditory hallucinations, Depression, Homicidal thoughts, Suicidal thoughts, Visual hallucinations Hematological/Lymphatic: Reports: As per HPI. Denies: Anemia, Blood Clots, Easy bleeding, Easy bruising, Swollen glands Past Medical History - SOCIAL HISTORY Smoking Status: Former smoker Alcohol Use: None Drug Use: None - RESPIRATORY Hx Respiratory Disorders: Yes Hx Asthma: Yes - CARDIOVASCULAR Hx Cardio Disorders: Yes Hx Hypertension: Yes - NEURO Hx Neuro Disorders: Yes Hx Dizziness: Yes Hx Headaches: Yes Comment:: Schizo affect DX - GI Hx GI Disorders: Yes Hx Abdominal Pain: Yes Hx Nausea/Vomiting: Yes Comment:: chronic diarrhea - Hx Genitourinary Disorders: No - ENDOCRINE Hx Endocrine Disorders: No - MUSCULOSKELETAL Hx Musculoskeletal Disorders: No - PSYCH Hx Psych Problems: Yes Hx Anxiety: Yes Hx Behavior Problems: Yes Comment:: Schizophrenia - HEMATOLOGY/ONCOLOGY Hx Hematology/Oncology Disorders: No Family Medical History Any Significant Family History?: No Family Hx Comment (NOT TO BE USED IN PLACE OF ITEMS BELOW): Unable to obtain from patient as patient is poor historian and had Dx of Schizophrenia Physical Exam - General Limitations: No limitations Course Vital Signs 09/03/16 13:46 Temperature 97.3 F L Pulse Rate 104 H Respiratory 18 Rate Blood Pressure 111/69 Pulse Ox 99 Medical Decision Making - Lab Data Result diagrams: 09/03/16 15:12 09/03/16 15:12 Lab Results 09/03/16 09/03/16 09/03/16 Range/Units 13:54 15:12 15:12 WBC 8.2 (4.2-12.2) K/uL RBC 4.49 (3.80-5.40) M/uL Hgb 13.0 (11.6-16.0) gm/dl Hct 40.4 (35.0-47.0) % MCV 90.0 (81-97) fl MCH 29.0 (27-33) pg MCHC 32.2 (32-36) g/dl RDW 17.9 H (11.5-14.5) % Plt Count 249 (130-400) K/uL MPV 9.5 (7.4-10.4) fl Neutrophils % 71.0 (47-80) % Eosinophils % Not Reportable Basophils % Not Reportable Lymphocytes 24.0 (16-45) % Monocytes 4.0 (0-9) % Platelet Estimate Normal (NORMAL) RBC Morphology Normal Eosinophil Count 1.0 (0-6) % D-Dimer Cancelled Sodium 142 (136-145) mmol/L Potassium 3.7 (3.5-5.1) mmol/L Chloride 103 (98-107) mmol/L Carbon Dioxide 29.0 (22-30) mmol/L Anion Gap 10.0 (7-16) BUN 19 H (7-17) mg/dL Creatinine 0.8 (0.52-1.04) mg/dL Estimated GFR > 60 ml/min Random Glucose 132 H (70-110) mg/dL Calcium 8.8 (8.5-10.1) mg/dL CK-MB (CK-2) 1.3 (0-6) ug/L Troponin I < 0.012 (0.00-0.034) ng/mL Disposition Disposition: Discharge Clinical Impression: Chest wall pain Disposition: Home, Self-Care Condition: (1) Good Instructions: Chest Pain (ED) Additional Instructions: follow up with family doctor. return sooner if worse Forms: Patient Portal Access Quality - Quality Measures Quality Measures: N/A - Blood Pressure Screening Blood Pressure Classification: Normal BP Reading Systolic Measurement: 111 Diastolic Measurement: 69 Screening for High Blood Pressure: < Normal BP, F/U Not Required > [G8783] Normal BP Follow-up Interventions: No follow-up required
--- NOTE | 2016-09-04 07:49 | RADIOLOGY REPORT ---
EXAM: CHEST, TWO VIEWS HISTORY: CHEST PAIN. TECHNIQUE: Frontal and lateral views of the chest were performed. FINDINGS: There is cardiomegaly. There is mild pulmonary vascular congestion. There is a left lower lobe infiltrate. IMPRESSION: 1. CARDIOMEGALY WITH MILD CONGESTION. 2. LEFT LOWER LOBE INFILTRATE. JOB NUMBER: [id number] MTDD
== END 2016-09-03 16:10 | disposition home or self-care (01) ==
LOC: ER 13:38
DX: R07.89 Other chest pain (principal); I10 Essential (primary) hypertension; F20.9 Schizophrenia, unspecified; Z87.891 Personal history of nicotine dependence
CPT/HCPCS: 71020; 80048; 82550; 82553; 84484; 85027; 93005; 93010; 94640; 99284; J7613

== ENCOUNTER 2016-10-07 21:16 | Emergency (ER) | payer MEDICARE, MEDICAID ==
--- NOTE | 2016-10-07 21:21 | Emergency Department Record ---
History of Present Illness - General Chief Complaint: Fall Injury Stated Complaint: FALL Time Seen by Provider: 10/07/16 21:18 Source: Patient, EMS - History of Present Illness Initial Comments: Fell onto left shoulder while getting read to take a shower. Left shoulder pain. MD Complaint: Fall - Related Data Home Medications Medication Instructions Recorded Confirmed Last Taken Clonazepam 0.5 mg PO TID 05/12/14 07/25/16 10/07/16 Lisinopril [Zestril] 10 mg PO DAILY 05/12/14 10/07/16 10/07/16 Risperidone [Risperdal M-Tab] 4 mg PO BID 05/12/14 10/07/16 10/07/16 Haloperidol 10 mg PO BID 08/04/14 10/07/16 10/07/16 Tiotropium [place] [Spiriva] 2 puff IH DAILY 08/06/14 10/07/16 10/07/16 Metoprolol Tartrate [Lopressor] 25 mg PO Q12H 09/29/14 10/07/16 10/07/16 Glyburide 5 mg PO DAILY 01/29/16 10/07/16 10/07/16 Quetiapine Fumarate [Seroquel] 100 mg PO QHS 01/29/16 10/07/16 10/06/16 Quetiapine Fumarate [Seroquel] 400 mg PO QHS 01/29/16 10/07/16 10/06/16 Atorvastatin Calcium 40 mg PO DAILY 07/25/16 10/07/16 10/06/16 Vortioxetine Hydrobromide 20 mg PO ASDIR 07/25/16 10/07/16 10/07/16 [Trintellix] Carbamazepine [Carbamazepine Er] 100 mg PO TID cap 09/11/16 10/07/16 10/07/16 Dextromethorphan HBr/Quinidine 1 cap PO Q12H cap 09/11/16 10/07/16 10/07/16 [Nuedexta 20-10 Mg Capsule] Oxybutynin Chloride [Oxybutynin 10 mg PO QD tab 09/11/16 10/07/16 10/07/16 Chloride Er] Potassium Chloride 10 meq PO QD cap 09/11/16 10/07/16 10/07/16 Previous Rx's Medication Instructions Recorded Hydrochlorothiazide [Hctz] 25 mg PO DAILY #30 capsule 08/22/14 Allergies Allergy/AdvReac Type Severity Reaction Status Date / Time acetaminophen [From Tylenol] Allergy Intermediate NAUSEA Verified 07/25/16 19:03 aspirin Allergy Intermediate NAUSEA Verified 07/25/16 19:03 codeine Allergy Intermediate NAUSEA Verified 07/25/16 19:03 diphenhydramine HCl Allergy Intermediate DIZZINESS Verified 07/25/16 19:03 [From Benadryl] ibuprofen Allergy Intermediate NAUSEA Verified 07/25/16 19:03 trolamine salicylate Allergy Intermediate RASH Verified 07/25/16 19:03 [From Aspercreme] Review of Systems Reviewed: No additional complaints except as noted below Constitutional: Reports: As per HPI. Denies: Chills, Fever, Malaise, Night sweats, Weakness, Weight change Eyes: Reports: As per HPI. Denies: Eye discharge, Eye pain, Photophobia, Vision change ENT: Reports: As per HPI. Denies: Congestion, Dental pain, Ear pain, Epistaxis , Hearing loss, Throat pain Respiratory: Reports: As per HPI. Denies: Cough, Dyspnea, Hemoptysis, Stridor, Wheezes Cardiovascular: Reports: As per HPI. Denies: Arrhythmia, Chest pain, Dyspnea on exertion, Edema, Murmurs, Orthopnea, Palpitations, Paroxysmal nocturnal dyspnea, Rheumatic Fever, Syncope Endocrine: Reports: As per HPI. Denies: Fatigue, Heat or cold intolerance, Polydipsia, Polyuria Gastrointestinal: Reports: As per HPI. Denies: Abdominal pain, Constipation, Diarrhea, Hematemesis, Hematochezia, Melena, Nausea, Vomiting Genitourinary: Reports: As per HPI. Denies: Abnormal menses, Discharge, Dyspareunia, Dysuria, Frequency, Hematuria, Incontinence, Retention, Urgency Musculoskeletal: Reports: As per HPI. Denies: Arthralgia, Back pain, Gout, Joint swelling, Myalgia, Neck pain Skin: Reports: As per HPI. Denies: Bruising, Change in color, Change in hair/ nails, Lesions, Pruritus, Rash Neurological: Reports: As per HPI. Denies: Abnormal gait, Confusion, Headache, Numbness, Paresthesias, Seizure, Tingling, Tremors, Vertigo, Weakness Psychiatric: Reports: As per HPI. Denies: Anxiety, Auditory hallucinations, Depression, Homicidal thoughts, Suicidal thoughts, Visual hallucinations Hematological/Lymphatic: Reports: As per HPI. Denies: Anemia, Blood Clots, Easy bleeding, Easy bruising, Swollen glands Past Medical History - SOCIAL HISTORY Smoking Status: Former smoker Drug Use: None - RESPIRATORY Hx Respiratory Disorders: Yes Hx Asthma: Yes - CARDIOVASCULAR Hx Cardio Disorders: Yes Hx Hypertension: Yes - NEURO Hx Neuro Disorders: Yes Hx Dizziness: Yes Hx Headaches: Yes Comment:: Schizo affect DX - GI Hx GI Disorders: Yes Hx Abdominal Pain: Yes Hx Nausea/Vomiting: Yes Comment:: chronic diarrhea - Hx Genitourinary Disorders: No - ENDOCRINE Hx Endocrine Disorders: No - MUSCULOSKELETAL Hx Musculoskeletal Disorders: No - PSYCH Hx Psych Problems: Yes Hx Anxiety: Yes Hx Behavior Problems: Yes Comment:: Schizophrenia - HEMATOLOGY/ONCOLOGY Hx Hematology/Oncology Disorders: No Family Medical History Family Hx Comment (NOT TO BE USED IN PLACE OF ITEMS BELOW): Unable to obtain from patient as patient is poor historian and had Dx of Schizophrenia Physical Exam - General General Appearance: Alert, Cooperative, No acute distress Limitations: Physical limitation, Other ([facility] home for mentally disabled) - Head Head exam: Normal inspection - Eye Eye exam: Normal appearance, PERRL, EOMI Pupils: Normal accommodation - ENT ENT exam: Normal exam, Mucous membranes moist, Normal external ear exam, Normal orophraynx, TM's normal bilaterally Ear exam: Normal external inspection. negative: External canal tenderness Nasal Exam: Normal inspection. negative: Discharge, Sinus tenderness Mouth exam: Normal external inspection, Tongue normal Teeth exam: Normal inspection. negative: Dental caries Throat exam: Normal inspection. negative: Tonsillar erythema, Tonsillar exudate - Neck Neck exam: Normal inspection, Full ROM. negative: Tenderness - Respiratory Respiratory exam: Normal lung sounds bilaterally. negative: Respiratory distress - Cardiovascular Cardiovascular Exam: Regular rate, Normal rhythm, Normal heart sounds - GI/Abdominal GI/Abdominal exam: Soft, Normal bowel sounds, Other (incontinent upon arrival). negative: Tenderness - Rectal Rectal exam: Deferred - exam: Deferred - Extremities Extremities exam: Normal inspection, Full ROM, Normal capillary refill, Tenderness (tender over AC joint left shoulder and diffusely.) - Back Back exam: Reports: Normal inspection, Full ROM. Denies: Muscle spasm, Rash noted, Tenderness - Neurological Neurological exam: Alert, CN II-XII intact, Reflexes normal. negative: Motor sensory deficit - Psychiatric Psychiatric exam: Normal affect, Normal mood - Skin Skin exam: Dry, Intact, Normal color, Warm Course - Reevaluation(s) Reevaluation #1: The patient wants me to "check my babies. There are two of them, one on each side, they are girls. Twins." 10/07/16 21:24 Medical Decision Making - Management Options MDM Management: No Additional Work-up Planned - Data Complexity MDM Data: X-Ray Ordered and/or Reviewed (Left shoulder:No acute abnormality, chronic changes. Per radiologist.) Disposition Disposition: Discharge Clinical Impression: Left shoulder strain Qualifiers: Encounter type: initial encounter Qualified Code(s): S46.912A - Strain of unspecified muscle, fascia and tendon at shoulder and upper arm level, left arm , initial encounter Disposition: Home, Self-Care Condition: (1) Good Instructions: Fall Prevention for Older Adults (ED) Additional Instructions: Sling left arm for 5 days. Follow up with PCP for recheck. OTC medication as needed as directed on bottle for pain. Gentle ROM of shoulder three times daily. Forms: Patient Portal Access Quality - Quality Measures Quality Measures: N/A - Blood Pressure Screening Does Patient Have Any of the Following: No Blood Pressure Classification: Normal BP Reading Systolic Measurement: 106 Diastolic Measurement: 65 Screening for High Blood Pressure: < Normal BP, F/U Not Required > [G8783]
--- NOTE | 2016-10-09 08:00 | RADIOLOGY REPORT ---
EXAM: LEFT SHOULDER COMPLETE HISTORY: LEFT SHOULDER PAIN FOR TWO WEEKS. FALL. TECHNIQUE: Three views of the left shoulder were obtained. Comparison: Two view chest radiographic examination dated 09/03/16. Encounter: Initial. FINDINGS: There is normal bone mineralization. Severe degenerative changes of the glenohumeral joint are identified. On the internal humerus rotation AP view and on the scapular Y-view there is curvilinear lucency projecting at the level of the humeral head. This may relate to superimpositioning of the osseous glenoid though a subacute/chronic incomplete union fracture would be difficult to exclude. No definite acute fracture nor dislocation. There are mild degenerative changes of the left acromioclavicular joint. Chronic appearing fracture deformities of multiple left ribs redemonstrated. IMPRESSION: 1. SEVERE DEGENERATIVE CHANGES OF THE LEFT GLENOHUMERAL JOINT. 2. ON THE INTERNAL HUMERUS ROTATION AND SCAPULAR Y-VIEWS THERE IS CURVILINEAR LUCENCY PROJECTING AT THE LEVEL OF THE HUMERAL HEAD WHICH MAY JUST RELATE TO SUPERIMPOSITION OF THE OSSEOUS GLENOID THOUGH A NONDISPLACED INCOMPLETE UNION SUBACUTE/CHRONIC FRACTURE DEFORMITY WOULD BE DIFFICULT TO EXCLUDE. 3. FRACTURE DEFORMITIES OF MULTIPLE LEFT RIBS REDEMONSTRATED, CHRONIC IN APPEARANCE. JOB NUMBER: [id number] [facility]
== END 2016-10-07 22:33 | disposition home or self-care (01) ==
LOC: ER 21:16
DX: S46.912A Strain of unspecified muscle, fascia and tendon at shoulder and upper arm level, left arm, initial encounter (principal); W18.2XXA Fall in (into) shower or empty bathtub, initial encounter; I10 Essential (primary) hypertension; Y93.F1 Activity, caregiving, bathing; Z87.891 Personal history of nicotine dependence
CPT/HCPCS: 99283

== ENCOUNTER 2016-10-11 20:28 | Emergency (ER) | payer MEDICARE, MEDICAID ==
--- NOTE | 2016-10-11 21:01 | Emergency Department Record ---
History of Present Illness - General Chief Complaint: Chest Pain Stated Complaint: CHEST PAIN Time Seen by Provider: 10/11/16 20:54 Source: Patient Mode of Arrival: EMS Limitations: No limitations - History of Present Illness Initial Comments: The patient is here due to having L sided CP which started about 30 minutes and lasted 15-20 minutes and then resolved. She denied any SOB, JOE, or sweating with it. The patient has a long hx of similar problems due to musculoskeletal pain. She also has a long hx of shizophrenia and also is concerned she is with twins. She has been here multiple times for the same thing. MD Complaint: Chest pain Onset/Timin -: Minutes(s) Onset: Other Pain Location: Substernal Pain Radiation: None Quality: Aching Consistency: Now resolved Worsens With: Nothing Treatments Prior to Arrival: None - Related Data Previous Rx's Medication Instructions Recorded Hydrochlorothiazide [Hctz] 25 mg PO DAILY #30 capsule 08/22/14 Allergies Allergy/AdvReac Type Severity Reaction Status Date / Time acetaminophen [From Tylenol] Allergy Intermediate NAUSEA Verified 07/25/16 19:03 aspirin Allergy Intermediate NAUSEA Verified 07/25/16 19:03 codeine Allergy Intermediate NAUSEA Verified 07/25/16 19:03 diphenhydramine HCl Allergy Intermediate DIZZINESS Verified 07/25/16 19:03 [From Benadryl] ibuprofen Allergy Intermediate NAUSEA Verified 07/25/16 19:03 trolamine salicylate Allergy Intermediate RASH Verified 07/25/16 19:03 [From Aspercreme] Travel Screening - Travel/Exposure Within Last 30 Days Have you traveled within the last 30 days?: No - Travel Symptoms Symptom Screening: None Review of Systems Constitutional: Denies: Chills, Fever Eyes: Denies: Eye discharge ENT: Denies: Congestion Respiratory: Denies: Cough, Dyspnea Past Medical History - SOCIAL HISTORY Smoking Status: Current some day smoker - RESPIRATORY Hx Respiratory Disorders: Yes Hx Asthma: Yes - CARDIOVASCULAR Hx Cardio Disorders: Yes Hx Hypertension: Yes - NEURO Hx Neuro Disorders: Yes Hx Dizziness: Yes Hx Headaches: Yes Comment:: Schizo affect DX - GI Hx GI Disorders: Yes Hx Abdominal Pain: Yes Hx Nausea/Vomiting: Yes Comment:: chronic diarrhea - Hx Genitourinary Disorders: No - ENDOCRINE Hx Endocrine Disorders: No - MUSCULOSKELETAL Hx Musculoskeletal Disorders: No - PSYCH Hx Psych Problems: Yes Hx Anxiety: Yes Hx Behavior Problems: Yes Comment:: Schizophrenia - HEMATOLOGY/ONCOLOGY Hx Hematology/Oncology Disorders: No Family Medical History Any Significant Family History?: Yes Family Hx Comment (NOT TO BE USED IN PLACE OF ITEMS BELOW): Unable to obtain from patient as patient is poor historian and had Dx of Schizophrenia Physical Exam - General General Appearance: Alert, Cooperative, No acute distress - Head Head exam: Atraumatic, Normocephalic, Normal inspection - Eye Eye exam: Normal appearance, PERRL - Neck Neck exam: Normal inspection, Full ROM. negative: Tenderness - Respiratory Respiratory exam: Normal lung sounds bilaterally, Chest wall tenderness (The pain is 100% reproducible to palpation.). negative: Respiratory distress - Cardiovascular Cardiovascular Exam: Regular rate, Normal rhythm, Normal heart sounds. negative : Diastolic murmur, Systolic murmur - GI/Abdominal GI/Abdominal exam: Soft, Normal bowel sounds. negative: Tenderness - Extremities Extremities exam: Normal inspection, Full ROM, Normal capillary refill. negative: Tenderness Course Vital Signs 10/11/16 20:31 Temperature 98.1 F Pulse Rate [ 97 H Apical] Respiratory 16 Rate Blood Pressure 146/81 [Left Arm] Pulse Ox 98 - Reevaluation(s) Reevaluation #1: Due to the chronic nature of the pain and her psych. hx I do not believe she is having any emergency medical issue. She is to proceed home and is to take her home pain medicines. 10/11/16 20:59 Medical Decision Making - Data Complexity MDM Data: EKG Ordered and/or Reviewed - EKG Data -: EKG Interpreted by Me EKG: No Acute Changes, Normal EKG, Unchanged From Previous Disposition Disposition: Discharge Clinical Impression: Chest wall pain, chronic Disposition: Home, Self-Care Condition: (1) Good Instructions: Chest Wall Pain (ED) Additional Instructions: Please see your PCP next week for recheck. Please take your home pain medicines as needed. Return to the ER for any problems. Forms: Patient Portal Access Time of Disposition: 21:01 Quality - Quality Measures Quality Measures: N/A - Blood Pressure Screening View Details: Yes Does Patient Have Any of the Following: No Blood Pressure Classification: Pre-Hypertensive BP Reading Systolic Measurement: 146 Diastolic Measurement: 81 Screening for High Blood Pressure: < Pre-Hypertensive BP, F/U Documented > [ G8950] Pre-Hypertensive Follow-up Interventions: Referral to alternative/primary care provider.
== END 2016-10-11 21:26 | disposition home or self-care (01) ==
LOC: ER 20:28
DX: R07.89 Other chest pain (principal); F20.9 Schizophrenia, unspecified
CPT/HCPCS: 93005; 93010; 99283; 99284

== ENCOUNTER 2016-10-31 19:52 | Emergency (ER) | payer MEDICARE, MEDICAID ==
--- NOTE | 2016-10-31 20:50 | Emergency Department Record ---
History of Present Illness - General Chief Complaint: Fall Injury Stated Complaint: FALL INJURY Time Seen by Provider: 10/31/16 20:11 Source: Patient, EMS Mode of Arrival: Wheelchair Limitations: No limitations - History of Present Illness Initial Comments: pt tripped and fell injuring back and neck. no numbness Onset/Timin -: Minutes(s) Fall From: Standing When Fall Occurred: Just prior to arrival Fall Witnessed: No Place Fall Occurred: assisted/SNF Loss of Consciousness: None Prolonged Down Time?: No Symptoms Prior to Fall: None Location: Neck, Back Severity: Mild Context: Tripped/slipped Associated Symptoms: Denies - [place] Coma Scale Eye Response: (4) Open spontaneously Motor Response: (6) Obeys commands Verbal Response: (5) Oriented [place] Total: 15 - Related Data Previous Rx's Medication Instructions Recorded Hydrochlorothiazide [Hctz] 25 mg PO DAILY #30 capsule 08/22/14 Allergies Allergy/AdvReac Type Severity Reaction Status Date / Time acetaminophen [From Tylenol] Allergy Intermediate NAUSEA Verified 07/25/16 19:03 aspirin Allergy Intermediate NAUSEA Verified 07/25/16 19:03 codeine Allergy Intermediate NAUSEA Verified 07/25/16 19:03 diphenhydramine HCl Allergy Intermediate DIZZINESS Verified 07/25/16 19:03 [From Benadryl] ibuprofen Allergy Intermediate NAUSEA Verified 07/25/16 19:03 trolamine salicylate Allergy Intermediate RASH Verified 07/25/16 19:03 [From Aspercreme] Travel Screening - Travel/Exposure Within Last 30 Days Have you traveled within the last 30 days?: No - Travel/Exposure Within Last Year Have you traveled outside the [place] in the last year?: No - Additonal Travel Details Have you been exposed to anyone with a communicable illness?: No - Travel Symptoms Symptom Screening: None Review of Systems Reviewed: No additional complaints except as noted below Constitutional: Reports: As per HPI. Denies: Chills, Fever, Malaise, Night sweats, Weakness, Weight change Eyes: Reports: As per HPI. Denies: Eye discharge, Eye pain, Photophobia, Vision change ENT: Reports: As per HPI. Denies: Congestion, Dental pain, Ear pain, Epistaxis , Hearing loss, Throat pain Respiratory: Reports: As per HPI. Denies: Cough, Dyspnea, Hemoptysis, Stridor, Wheezes Cardiovascular: Reports: As per HPI. Denies: Arrhythmia, Chest pain, Dyspnea on exertion, Edema, Murmurs, Orthopnea, Palpitations, Paroxysmal nocturnal dyspnea, Rheumatic Fever, Syncope Endocrine: Reports: As per HPI. Denies: Fatigue, Heat or cold intolerance, Polydipsia, Polyuria Gastrointestinal: Reports: As per HPI. Denies: Abdominal pain, Constipation, Diarrhea, Hematemesis, Hematochezia, Melena, Nausea, Vomiting Genitourinary: Reports: As per HPI. Denies: Abnormal menses, Discharge, Dyspareunia, Dysuria, Frequency, Hematuria, Incontinence, Retention, Urgency Musculoskeletal: Reports: As per HPI. Denies: Arthralgia, Back pain, Gout, Joint swelling, Myalgia, Neck pain Skin: Reports: As per HPI. Denies: Bruising, Change in color, Change in hair/ nails, Lesions, Pruritus, Rash Neurological: Reports: As per HPI. Denies: Abnormal gait, Confusion, Headache, Numbness, Paresthesias, Seizure, Tingling, Tremors, Vertigo, Weakness Psychiatric: Reports: As per HPI. Denies: Anxiety, Auditory hallucinations, Depression, Homicidal thoughts, Suicidal thoughts, Visual hallucinations Hematological/Lymphatic: Reports: As per HPI. Denies: Anemia, Blood Clots, Easy bleeding, Easy bruising, Swollen glands Past Medical History - SOCIAL HISTORY Smoking Status: Current some day smoker Alcohol Use: None Drug Use: None - RESPIRATORY Hx Respiratory Disorders: Yes Hx Asthma: Yes - CARDIOVASCULAR Hx Cardio Disorders: Yes Hx Hypertension: Yes - NEURO Hx Neuro Disorders: Yes Hx Dizziness: Yes Hx Headaches: Yes Comment:: Schizo affect DX - GI Hx GI Disorders: Yes Hx Abdominal Pain: Yes Hx Nausea/Vomiting: Yes Comment:: chronic diarrhea - Hx Genitourinary Disorders: No - ENDOCRINE Hx Endocrine Disorders: No - MUSCULOSKELETAL Hx Musculoskeletal Disorders: No - PSYCH Hx Psych Problems: Yes Hx Anxiety: Yes Hx Behavior Problems: Yes Comment:: Schizophrenia - HEMATOLOGY/ONCOLOGY Hx Hematology/Oncology Disorders: No Family Medical History Any Significant Family History?: No Family Hx Comment (NOT TO BE USED IN PLACE OF ITEMS BELOW): Unable to obtain from patient as patient is poor historian and had Dx of Schizophrenia Physical Exam - General General Appearance: Alert, Oriented x3, Cooperative, Mild distress - Head Head exam: Normal inspection - Eye Eye exam: Normal appearance, PERRL, EOMI Pupils: Normal accommodation - ENT ENT exam: Normal exam, Mucous membranes moist, Normal external ear exam, Normal orophraynx Ear exam: Normal external inspection. negative: External canal tenderness Nasal Exam: Normal inspection. negative: Discharge, Sinus tenderness Mouth exam: Normal external inspection, Tongue normal Teeth exam: Normal inspection. negative: Dental caries Throat exam: Normal inspection. negative: Tonsillar erythema, Tonsillar exudate - Neck Neck exam: Normal inspection, Full ROM, Tenderness - Respiratory Respiratory exam: Normal lung sounds bilaterally. negative: Respiratory distress - Cardiovascular Cardiovascular Exam: Regular rate, Normal rhythm, Normal heart sounds - GI/Abdominal GI/Abdominal exam: Soft, Normal bowel sounds. negative: Tenderness - Rectal Rectal exam: Deferred - exam: Deferred - Extremities Extremities exam: Normal inspection, Full ROM, Normal capillary refill. negative: Tenderness - Back Back exam: Reports: Normal inspection, Full ROM, Tenderness. Denies: Muscle spasm, Rash noted - Neurological Neurological exam: Alert, CN II-XII intact, Normal gait, Oriented X3 - Psychiatric Psychiatric exam: Normal affect, Normal mood - Skin Skin exam: Dry, Intact, Normal color, Warm Course Vital Signs 10/31/16 19:57 Temperature 97.3 F L Pulse Rate [ 82 Apical] Respiratory 18 Rate Blood Pressure 129/78 [Left Arm] Pulse Ox 95 Disposition Disposition: Discharge Clinical Impression: Back strain Qualifiers: Encounter type: initial encounter Qualified Code(s): S39.012A - Strain of muscle, fascia and tendon of lower back, initial encounter Disposition: [facility] Condition: (1) Good Instructions: Fall Prevention for Older Adults (ED), Low Back Strain (ED) Additional Instructions: follow up with family doctor. return sooner if worse. ice to sore areas Forms: Patient Portal Access Quality - Quality Measures Quality Measures: N/A - Blood Pressure Screening Does Patient Have Any of the Following: No Blood Pressure Classification: Normal BP Reading Systolic Measurement: 107 Diastolic Measurement: 68 Screening for High Blood Pressure: < Normal BP, F/U Not Required > [G8783]
--- NOTE | 2016-11-01 08:09 | RADIOLOGY REPORT ---
EXAM: CERVICAL SPINE HISTORY: NECK PAIN. TECHNIQUE: AP, lateral and oblique views of the cervical spine were performed. FINDINGS: There is multilevel degenerative change. No definitive fracture, subluxation, or perched facet. IMPRESSION: MULTILEVEL DEGENERATIVE CHANGE. NO EVIDENCE OF FRACTURE, SUBLUXATION, OR PERCHED FACET. JOB NUMBER: [id number] MTDD
--- NOTE | 2016-11-01 08:58 | RADIOLOGY REPORT ---
EXAM: LUMBAR SPINE HISTORY: BACK PAIN. TECHNIQUE: AP and lateral views of the lumbar spine were performed. FINDINGS: There is mild disk space narrowing at T12-L1 and L1-L2 levels. No evidence of fracture, spondylolysis, or spondylolisthesis. IMPRESSION: 1. MILD JOINT SPACE NARROWING AT T12-L1 AND L1-L2 LEVELS. NO EVIDENCE OF FRACTURE. 2. FACET ARTHROPATHY AT L4-L5 AND L5-S1 LEVELS. JOB NUMBER: [id number] MTDD
== END 2016-10-31 22:09 ==
LOC: ER 19:52
DX: S39.012A Strain of muscle, fascia and tendon of lower back, initial encounter (principal); M54.2 Cervicalgia; W01.0XXA Fall on same level from slipping, tripping and stumbling without subsequent striking against object, initial encounter; Y92.129 Unspecified place in nursing home as the place of occurrence of the external cause
CPT/HCPCS: 72050; 72100; 99283

== ENCOUNTER 2016-11-22 17:51 | Emergency (ER) | payer MEDICARE, MEDICAID ==
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
[2016-11-22] MEDS: 0.9 % SODIUM CHLORIDE 1,000 ML BAG IV ONE (18:56)
--- NOTE | 2016-11-22 18:58 | Emergency Department Record ---
History of Present Illness - General Chief Complaint: Slurred speech Stated Complaint: SLURING WORDS AND LOSE BOWELS Time Seen by Provider: 11/22/16 18:05 Source: Patient, RN notes reviewed Mode of Arrival: Ambulatory - History of Present Illness Onset/Timin -: Days(s) Location: Speech History of same: No Place: Home Improves With: None Worsens With: None On Anticoagulants: No Associated Symptoms: Denies other symptoms Treatments Prior to Arrival: None - Welch Coma Scale Eye Response: (4) Open spontaneously Motor Response: (6) Obeys commands Verbal Response: (5) Oriented Luis Enrique Total: 15 - Related Data Home Medications: Home Medications Medication Instructions Recorded Confirmed Last Taken Trazodone HCl [Desyrel] 50 mg PO QHS 11/22/16 11/22/16 Unknown Previous Rx's Medication Instructions Recorded Hydrochlorothiazide [Hctz] 25 mg PO DAILY #30 capsule 08/22/14 Allergies/Adverse Reactions: Allergies Allergy/AdvReac Type Severity Reaction Status Date / Time acetaminophen [From Tylenol] Allergy Intermediate NAUSEA Verified 07/25/16 19:03 aspirin Allergy Intermediate NAUSEA Verified 07/25/16 19:03 codeine Allergy Intermediate NAUSEA Verified 07/25/16 19:03 diphenhydramine HCl Allergy Intermediate DIZZINESS Verified 07/25/16 19:03 [From Benadryl] ibuprofen Allergy Intermediate NAUSEA Verified 07/25/16 19:03 trolamine salicylate Allergy Intermediate RASH Verified 07/25/16 19:03 [From Aspercreme] Travel Screening - Travel/Exposure Within Last 30 Days Have you traveled within the last 30 days?: No Review of Systems Constitutional: Reports: As per HPI. Denies: Chills, Fever, Malaise, Night sweats, Weakness, Weight change Eyes: Reports: As per HPI. Denies: Eye discharge, Eye pain, Photophobia, Vision change ENT: Reports: As per HPI. Denies: Congestion, Dental pain, Ear pain, Epistaxis , Hearing loss, Throat pain Respiratory: Reports: As per HPI. Denies: Cough, Dyspnea, Hemoptysis, Stridor, Wheezes Cardiovascular: Reports: As per HPI. Denies: Arrhythmia, Chest pain, Dyspnea on exertion, Edema, Murmurs, Orthopnea, Palpitations, Paroxysmal nocturnal dyspnea, Rheumatic Fever, Syncope Endocrine: Reports: As per HPI. Denies: Fatigue, Heat or cold intolerance, Polydipsia, Polyuria Gastrointestinal: Reports: As per HPI. Denies: Abdominal pain, Constipation, Diarrhea, Hematemesis, Hematochezia, Melena, Nausea, Vomiting Genitourinary: Reports: As per HPI. Denies: Abnormal menses, Discharge, Dyspareunia, Dysuria, Frequency, Hematuria, Incontinence, Retention, Urgency Musculoskeletal: Reports: As per HPI. Denies: Arthralgia, Back pain, Gout, Joint swelling, Myalgia, Neck pain Skin: Reports: As per HPI. Denies: Bruising, Change in color, Change in hair/ nails, Lesions, Pruritus, Rash Neurological: Reports: As per HPI. Denies: Abnormal gait, Confusion, Headache, Numbness, Paresthesias, Seizure, Tingling, Tremors, Vertigo, Weakness Psychiatric: Reports: As per HPI. Denies: Anxiety, Auditory hallucinations, Depression, Homicidal thoughts, Suicidal thoughts, Visual hallucinations Hematological/Lymphatic: Reports: As per HPI. Denies: Anemia, Blood Clots, Easy bleeding, Easy bruising, Swollen glands Past Medical History - SOCIAL HISTORY Smoking Status: Current some day smoker - RESPIRATORY Hx Respiratory Disorders: Yes Hx Asthma: Yes - CARDIOVASCULAR Hx Cardio Disorders: Yes Hx Hypertension: Yes - NEURO Hx Neuro Disorders: Yes Hx Dizziness: Yes Hx Headaches: Yes Comment:: Schizo affect DX - GI Hx GI Disorders: Yes Hx Abdominal Pain: Yes Hx Nausea/Vomiting: Yes Comment:: chronic diarrhea - Hx Genitourinary Disorders: No - ENDOCRINE Hx Endocrine Disorders: No - MUSCULOSKELETAL Hx Musculoskeletal Disorders: No - PSYCH Hx Psych Problems: Yes Hx Anxiety: Yes Hx Behavior Problems: Yes Comment:: Schizophrenia - HEMATOLOGY/ONCOLOGY Hx Hematology/Oncology Disorders: No Family Medical History Any Significant Family History?: No Family Hx Comment (NOT TO BE USED IN PLACE OF ITEMS BELOW): Unable to obtain from patient as patient is poor historian and had Dx of Schizophrenia Course Vital Signs 11/22/16 17:58 Temperature 97.5 F L Pulse Rate 91 H Respiratory 20 Rate Blood Pressure 141/78 Pulse Ox 95 - Reevaluation(s) Reevaluation #1: 11/22/16 18:55 Patient seen and examined, no focal deficits on examination. It Security Analyst strength 5/5 and symmetric, lower extremity flexion is 5/5 and symmetric, no slurred speech on examination. pump erector at the bedside is concerned about possible dehydration resulting in an abnormal tegretol level, orders placed by previous provider, will await results. Caregiver also reports that there is a newer member to the home who "has been picking on [place]", and that her symptoms may be stress related. No clinical evidence for CVA on examination. Reevaluation #2: 11/22/16 19:46 Labs reviewed, BUN 30/Creatinine 0.8, Tegretol level is at the lower end of normal at 4.2. UA pending. CT Brain: No acute process. Reevaluation #3: 11/22/16 20:02 UA reviewed and appears negative for infection. Caregiver at the bedside reports that she is at her baseline, and appears stable for discharge at this time back to her [facility]. Medical Decision Making - Lab Data Result diagrams: 11/22/16 19:09 11/22/16 19:09 Disposition Disposition: Discharge Clinical Impression: Dehydration Diarrhea Qualifiers: Diarrhea type: unspecified type Qualified Code(s): R19.7 - Diarrhea, unspecified Disposition: Home, Self-Care Condition: (2) Stable Instructions: Acute Diarrhea (ED) Additional Instructions: Return to ED if your symptoms worsen or if you have any concerns. Follow-up with your family doctor in 3-5 days as directed. Forms: Patient Portal Access Time of Disposition: 20:04 Quality - Quality Measures Quality Measures: N/A - Blood Pressure Screening Does Patient Have Any of the Following: No Blood Pressure Classification: Hypertensive Reading Systolic Measurement: 141 Diastolic Measurement: 78 Screening for High Blood Pressure: < First Hypertensive BP, F/U Documented > [ [id number]] First Hypertensive Follow-up Interventions: Referral to alternative/primary care provider.
[2016-11-22 19:07] LABS: BASO % 1.5 % (0-6); EOS % 2.4 % (0-6); GRAN % 61.1 % (47-80); HEMATOCRIT 42.6 % (35.0-47.0); HEMOGLOBIN 13.5 gm/dl (11.6-16.0); LYMPH % 22.4 % (16-45); MEAN CELL VOLUME 87.3 fl (81-97); MEAN CORPUSCULAR HEMOGLOBIN 27.7 pg (27-33); MEAN CORPUSCULAR HGB CONC 31.7 g/dl (32-36); MEAN PLATELET VOLUME 8.7 fl (7.4-10.4); MONO % 12.6 % (0-9); PLATELET COUNT 260 K/uL (130-400); RED BLOOD COUNT 4.88 M/uL (3.80-5.40); RED CELL DISTRIBUTION WIDTH 17.9 % (11.5-14.5); WHITE BLOOD COUNT W/O DIFF 5.5 K/uL (4.2-12.2)
[2016-11-22 19:31] LABS: ALB/GLOB RATIO 1.3 (1.1-1.8); ALBUMIN 3.7 g/dL (4.0-5.0); ALKALINE PHOSPHATASE 204 U/L (35-104); ALT/SGPT 26 U/L (<33); AST/SGOT 18 U/L (10.0-35.0); BLOOD UREA NITROGEN 30 mg/dL (8-23); CARBAMAZEPINE (TEGRETOL) 4.2 ug/mL (4.0-12.0); CREATININE 0.8 mg/dL (0.5-0.9); EST GLOMERULAR FILTRATION RATE > 60 mL/min; GLUCOSE,RANDOM 80 mg/dL (74-109); LIPASE 23 U/L (13-60); TOTAL PROTEIN 6.6 g/dL (6.6-8.7)
[2016-11-22] MEDS ORDERED: NYSTATIN TOP PRN (19:58)
[2016-11-22] MEDS ORDERED: TRIAMCIN TOP PRN (19:58)
[2016-11-22 19:59] LABS: URINE APPEARANCE CLEAR; URINE BILIRUBIN NEGATIVE (NEGATIVE); URINE BLOOD NEGATIVE (NEGATIVE); URINE COLOR YELLOW; URINE GLUCOSE (UA) NEGATIVE (NEGATIVE); URINE KETONE NEGATIVE (NEGATIVE); URINE LEUKOCYTE ESTERASE NEGATIVE (NEGATIVE); URINE NITRITE NEGATIVE (NEGATIVE); URINE PROTEIN NEGATIVE (NEGATIVE); URINE UROBILINOGEN 0.2 E.U./dL (0.20 - 1.00)
[2016-11-22] MEDS: NYSTATIN 15 GM TUBE TOP ONE (20:30)
--- NOTE | 2016-11-25 07:54 | CT SCAN REPORT ---
DATE: 11/22/2016 at 1918 hours. EXAM: HEAD CT WITHOUT CONTRAST. HISTORY: Acute slurred speech. COMPARISON: Head CT dated 01/03/2015. ENCOUNTER: Initial. HAND DOMINANCE: Unknown. TECHNIQUE: Contiguous axial images from the cerebral convexities to the foramen magnum were obtained without intravenous contrast. FINDINGS: Brain volume is normal. No acute intracranial hemorrhage, mass effect, or midline shift. No CT evidence of acute infarct. Ventricles, basal cisterns, and sulci are within normal limits. Osseous structures, soft tissues , and paranasal sinuses are unremarkable. IMPRESSION: NO ACUTE INTRACRANIAL PROCESS. JOB NUMBER: [id number] MTDD
== END 2016-11-22 20:35 | disposition home or self-care (01) ==
LOC: ER 17:51
DX: E86.0 Dehydration (principal); R47.81 Slurred speech; R19.7 Diarrhea, unspecified; I10 Essential (primary) hypertension; F17.210 Nicotine dependence, cigarettes, uncomplicated; F20.9 Schizophrenia, unspecified
CPT/HCPCS: 70450; 80053; 80156; 81003; 82140; 83690; 85025; 99284; J7030